=== PATIENT | male | born 1950 | race Caucasian/White ===

== ENCOUNTER 2018-12-22 10:00 | Emergency (ER) | payer MEDICARE ==
[~2018-12-22] VITALS: Ht 182.9 cm; Wt 129.3 kg
[~2018-12-22 10:00] MED LIST: ASPI325; ATECHL PO; ATEN25; ATEN25 PO; CYCL10 PO; DOCU100 PO; GABA300 PO; GABA400 PO; HYDACE5 PO; HYDHCL10EL; HYDR1TAB94 PO; IBUP800; LEVSOD25 PO; LISI20 PO; LISI5; LORA1; LORA1 PO; LORA2 PO; LOSA50 PO; METF500; METF500 PO; METF500C PO; MORP15ER PO; NAPR250 PO; NAPR500 PO; OMEGA3; OXYC5 PO; PRAZ1 PO; QUET25; RANI150; RANI150 PO; SIMV40 PO; SIMV5; TEMA30 PO; TRAZ100; VENL150ER PO; VENL25; VENL25 PO; VENL75 PO; Xanax0.5 MG PO; ZOLP10 PO; [UNRECOGNIZED DRUG - REMARK]; [UNRECOGNIZED DRUG - REMARK]
[2018-12-22] MEDS ORDERED: HYDR1TAB94 PO (12:00)
== END 2018-12-22 12:57 | disposition home or self-care (01) ==
LOC: ER 10:00
DX: S52.572A Other intraarticular fracture of lower end of left radius, initial encounter for closed fracture (principal); W01.198A Fall on same level from slipping, tripping and stumbling with subsequent striking against other object, initial encounter; Z79.899 Other long term (current) drug therapy; F43.10 Post-traumatic stress disorder, unspecified; I10 Essential (primary) hypertension; E11.9 Type 2 diabetes mellitus without complications; F17.210 Nicotine dependence, cigarettes, uncomplicated
CPT/HCPCS: 29125; 73110; 99283-25

== ENCOUNTER 2019-09-16 16:54 | Emergency (ER) | payer MEDICARE ==
[~2019-09-16] VITALS: Ht 182.9 cm; Wt 77.1 kg
[2019-09-16 18:08] LABS: BASOPHILS ABSOLUTE AUTO 0.03 K/mm3 (0.00-0.23); BASOPHILS PERCENT AUTO 0 % (0-2); EOSINOPHILS ABSOLUTE AUTO 0.41 K/mm3 (0.00-0.68); EOSINOPHILS PERCENT AUTO 4 % (0-6); Hematocrit 30.1 % (37.0-53.0); Hemoglobin 9.4 g/dL (13.5-17.5); IMMATURE GRAN ABSOLUTE AUTO 0.05 K/mm3 (0.00-0.10); IMMATURE GRAN PERCENT AUTO 1 % (0-1); LYMPHOCYTES ABSOLUTE AUTO 2.84 K/mm3 (0.84-5.20); LYMPHOCYTES PERCENT AUTO 29 % (21-46); MONOCYTES ABSOLUTE AUTO 0.86 K/mm3 (0.16-1.47); MONOCYTES PERCENT AUTO 9 % (4-13); Mean Corpuscular HGB 27.7 pg (26.0-34.0); Mean Corpuscular HGB Conc 31.2 g/dL (31.5-36.5); Mean Corpuscular Volume 89 fL (80-100); NEUTROPHILS ABSOLUTE AUTO 5.67 K/mm3 (1.96-9.15); NEUTROPHILS PERCENT AUTO 58 % (41-73); Platelet Count 224 K/mm3 (150-400); RDW Coefficient Variation 14.8 % (11.7-14.2); RDW Standard Deviation 47.9 fL (35.1-46.3); Red Blood Cell Count 3.39 M/mm3 (4.30-5.90); White Blood Cell Count 9.86 K/mm3 (4.00-11.30)
[2019-09-16 18:33] LABS: Alanine Aminotransfer (ALT/SGP 14 U/L (12-78); Albumin, Blood 2.9 g/dL (3.4-5.0); Albumin/Globulin Ratio 0.6 (0.8-1.8); Alk Phos 88 U/L (50-136); Anion Gap 6 mmol/L (6-16); Aspartate Aminotrans (AST/SGOT 16 U/L (12-37); Bilirubin, Total 0.2 mg/dL (0.1-1.0); Blood Urea Nitrogen 19 mg/dL (8-24); Bun/Creatinine Ratio 18.4 (12.0-20.0); CO2, Blood 26 mmol/L (21-32); Calcium, Blood 8.8 mg/dL (8.5-10.1); Chloride, Blood 105 mmol/L (98-108); Creatinine, Blood 1.03 mg/dL (0.60-1.20); Globulin, Blood 5.2 g/dL (2.2-4.0); Glomerular Filtration Rate >60 (60-); Glucose, Blood 81 mg/dL (70-99); Potassium, Blood 4.1 mmol/L (3.5-5.5); Sodium, Blood 137 mmol/L (136-145); Total Protein, Blood 8.1 g/dL (6.4-8.2)
[2019-09-16] MEDS ORDERED: HALO.5 PO (18:41)
== END 2019-09-16 19:17 | disposition home or self-care (01) ==
LOC: ER 16:54
PROVIDERS: Emergency Medicine
DX: F91.8 Other conduct disorders (principal); E11.9 Type 2 diabetes mellitus without complications; I10 Essential (primary) hypertension; F43.10 Post-traumatic stress disorder, unspecified; F17.210 Nicotine dependence, cigarettes, uncomplicated; Z88.8 Allergy status to other drugs, medicaments and biological substances; Z79.899 Other long term (current) drug therapy
CPT/HCPCS: 36415; 80053; 85025; 96372; 99285-25; J1630

== ENCOUNTER 2019-10-07 13:41 | Observation (INO) | payer OTHER, MEDICARE ==
[~2019-10-07] VITALS: Ht 182.9 cm; Wt 105.1 kg
[~2019-10-07 13:41] MED LIST changes: +HALO.5 PO
[2019-10-07 14:25] LABS: BASOPHILS ABSOLUTE AUTO 0.02 K/mm3 (0.00-0.23); BASOPHILS PERCENT AUTO 0 % (0-2); EOSINOPHILS ABSOLUTE AUTO 0.21 K/mm3 (0.00-0.68); EOSINOPHILS PERCENT AUTO 2 % (0-6); Hematocrit 23.7 % (37.0-53.0); Hemoglobin 6.9 g/dL (13.5-17.5); IMMATURE GRAN ABSOLUTE AUTO 0.09 K/mm3 (0.00-0.10); IMMATURE GRAN PERCENT AUTO 1 % (0-1); LYMPHOCYTES ABSOLUTE AUTO 1.84 K/mm3 (0.84-5.20); LYMPHOCYTES PERCENT AUTO 20 % (21-46); MONOCYTES ABSOLUTE AUTO 0.71 K/mm3 (0.16-1.47); MONOCYTES PERCENT AUTO 8 % (4-13); Mean Corpuscular HGB 27.1 pg (26.0-34.0); Mean Corpuscular HGB Conc 29.1 g/dL (31.5-36.5); Mean Corpuscular Volume 93 fL (80-100); Mean Platelet Volume 10.4 fL (9.1-12.4); NEUTROPHILS ABSOLUTE AUTO 6.38 K/mm3 (1.96-9.15); NEUTROPHILS PERCENT AUTO 69 % (41-73); Platelet Count 291 K/mm3 (150-400); RDW Coefficient Variation 15.5 % (11.7-14.2); RDW Standard Deviation 52.8 fL (35.1-46.3); Red Blood Cell Count 2.55 M/mm3 (4.30-5.90); White Blood Cell Count 9.25 K/mm3 (4.00-11.30)
[2019-10-07 14:42] LABS: Alanine Aminotransfer (ALT/SGP 11 U/L (12-78); Albumin, Blood 2.5 g/dL (3.4-5.0); Albumin/Globulin Ratio 0.5 (0.8-1.8); Alk Phos 69 U/L (50-136); Anion Gap 8 mmol/L (6-16); Aspartate Aminotrans (AST/SGOT 10 U/L (12-37); Bilirubin, Total 0.2 mg/dL (0.1-1.0); Blood Urea Nitrogen 17 mg/dL (8-24); Bun/Creatinine Ratio 16.2 (12.0-20.0); CO2, Blood 24 mmol/L (21-32); Calcium, Blood 8.6 mg/dL (8.5-10.1); Chloride, Blood 112 mmol/L (98-108); Creatinine, Blood 1.05 mg/dL (0.60-1.20); Globulin, Blood 5.4 g/dL (2.2-4.0); Glomerular Filtration Rate >60 (60-); Glucose, Blood 175 mg/dL (70-99); Potassium, Blood 3.9 mmol/L (3.5-5.5); Sodium, Blood 144 mmol/L (136-145); Total Protein, Blood 7.9 g/dL (6.4-8.2)
[2019-10-07] MEDS ORDERED: LIPITOR80 MG PO (17:21)
[2019-10-07] MEDS ORDERED: ALBU2.5V5 INH (17:21)
[2019-10-07] MEDS ORDERED: Benztropine Mesy1 MG PO (17:22)
[2019-10-07] MEDS ORDERED: BISA10S PR (17:22)
[2019-10-07] MEDS ORDERED: CLOP75 PO (17:23)
[2019-10-07] MEDS ORDERED: VENL75ER PO (17:23)
[2019-10-07] MEDS ORDERED: DIVA500ER PO (17:23)
[2019-10-07] MEDS ORDERED: Calcium Magnes1 EACH PO (17:23)
[2019-10-07] MEDS ORDERED: Haldol 5 mg Tab5 MG PO (17:24)
[2019-10-07] MEDS ORDERED: FERSU300 PO (17:24)
[2019-10-07] MEDS ORDERED: FOLI1 PO (17:24)
[2019-10-07] MEDS ORDERED: PREG150 PO (17:25)
[2019-10-07] MEDS ORDERED: LEVSOD25 PO (17:25)
[2019-10-07] MEDS ORDERED: ALBU3IS INH (17:25)
[2019-10-07] MEDS ORDERED: LIDO700A20 TOP (17:25)
[2019-10-07] MEDS ORDERED: MIRALAX17 GM PO (17:26)
[2019-10-07] MEDS ORDERED: MELA3 PO (17:26)
[2019-10-07] MEDS ORDERED: FAMO20 PO (17:26)
[2019-10-07] MEDS ORDERED: Seroquel Xr50 MG PO (17:27)
[2019-10-07] MEDS ORDERED: Florastor250 MG PO (17:27)
[2019-10-07] MEDS ORDERED: TIOT18 INH (17:27)
[2019-10-07] MEDS ORDERED: MINIPRESS2 MG PO (17:27)
[2019-10-07] MEDS ORDERED: TRAZ50 PO (17:28)
[2019-10-07] MEDS ORDERED: ARTHRICREAM85 GM TOP (17:28)
[2019-10-07] MEDS ORDERED: ALLO100 PO (17:29)
[2019-10-07] MEDS ORDERED: VITAMIN B-125000 MCG SL (17:29)
[2019-10-07 17:54] LABS: Hematocrit 25.1 % (37.0-53.0); Hemoglobin 7.5 g/dL (13.5-17.5)
--- NOTE | 2019-10-07 19:18 | NUR ---
1845 PT ADMITTED TO ROOM 306 PER CART FROM ER.
[2019-10-07] MEDS ORDERED: ASPI81CH PO (21:44)
[2019-10-07] MEDS ORDERED: CEFU500T30 PO (21:54)
[2019-10-07] MEDS ORDERED: MILK OF MA400 MG/5 M PO (21:59)
[2019-10-07] MEDS ORDERED: Senna-Docusate1 EACH PO (22:04)
[2019-10-07] MEDS ORDERED: ACET325 PO (22:05)
[2019-10-07] MEDS ORDERED: ONDA4ODT MM (22:10)
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
--- NOTE | 2019-10-08 04:40 | NUR ---
0162 PT MOVED VIA BED TO ROOM 350 FOR NURSING CONVIENCE, PT CONTINUED TO BE AGGRESSIVE WITH STAFF. THIS NURSE CALLED SPOUSE--TEDDY AT [phone] AND ADVISED HER OF PATIENT HITTING STAFF MEMBER AND THAT PATIENT WAS RELOCATED TO ROOM 350 FOR CLOSER OBSERVATION (VOICE MAIL LEFT).
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
[2019-10-08 05:20] LABS: BASOPHILS ABSOLUTE AUTO 0.02 K/mm3 (0.00-0.23); BASOPHILS PERCENT AUTO 0 % (0-2); EOSINOPHILS ABSOLUTE AUTO 0.21 K/mm3 (0.00-0.68); EOSINOPHILS PERCENT AUTO 2 % (0-6); Hematocrit 24.4 % (37.0-53.0); Hemoglobin 7.4 g/dL (13.5-17.5); IMMATURE GRAN PERCENT AUTO 1 % (0-1); LYMPHOCYTES ABSOLUTE AUTO 2.64 K/mm3 (0.84-5.20); LYMPHOCYTES PERCENT AUTO 30 % (21-46); MONOCYTES ABSOLUTE AUTO 0.85 K/mm3 (0.16-1.47); MONOCYTES PERCENT AUTO 10 % (4-13); Mean Corpuscular HGB 26.8 pg (26.0-34.0); Mean Corpuscular HGB Conc 30.3 g/dL (31.5-36.5); NEUTROPHILS ABSOLUTE AUTO 5.01 K/mm3 (1.96-9.15); NEUTROPHILS PERCENT AUTO 57 % (41-73); Platelet Count 275 K/mm3 (150-400); RDW Coefficient Variation 15.8 % (11.7-14.2); RDW Standard Deviation 51.3 fL (35.1-46.3); Red Blood Cell Count 2.76 M/mm3 (4.30-5.90); White Blood Cell Count 8.83 K/mm3 (4.00-11.30)
[2019-10-08 05:24] LABS: Mean Corpuscular Volume 88 fL (80-100)
--- NOTE | 2019-10-08 05:36 | NUR ---
TRANSFER REPORT RECEIVED FROM LISBET Montero RN. PT TRANSFERRED FROM 306 TO 350. PT IS FLAT BUT CURRENTLY COOPERATIVE WITH CARE. MEDICATED FOR PAIN WITH PRN DILAUDID DUE TO PT'S CURRENT NPO STATUS. IV PROTONIX DRIP STARTED. WILL CONTINUE TO MONITOR AND TREAT PER EMAR.
[2019-10-08 05:59] LABS: Anion Gap 6 mmol/L (6-16); Blood Urea Nitrogen 13 mg/dL (8-24); Bun/Creatinine Ratio 12.9 (12.0-20.0); CO2, Blood 24 mmol/L (21-32); Calcium, Blood 8.4 mg/dL (8.5-10.1); Chloride, Blood 114 mmol/L (98-108); Creatinine, Blood 1.01 mg/dL (0.60-1.20); Glomerular Filtration Rate >60 (60-); Glucose, Blood 99 mg/dL (70-99); Potassium, Blood 3.4 mmol/L (3.5-5.5); Sodium, Blood 144 mmol/L (136-145)
--- NOTE | 2019-10-08 09:08 | NUR ---
BLOOD IN REVIEW OF THE CHART THIS AM, PT WAS TO HAVE 2 UNITS PRBC'S, ONLY ONE GIVEN IN THE ER, UNABLE TO LOCATE BLOOD READY SLIP OR CONSENT FORM, NOTIFIED MANAGED CARE LIAISON WHO CALLED ER TO FIND IT, DR TAPIA NOTIFIED, WILL CALL BLOOD BANK TO SEE IF THEY CAN ISSUE ANOTHER UNIT READY SLIP AND OBTAIN ANOTHER BLOOD CONSENT
--- NOTE | 2019-10-08 10:34 | NUR ---
BLOOD TRANSFUSING, SPOKE WITH PT'S SPOUSE ON THE PHONE, PT BEING TAKEN DOWN TO DAY SURG FOR PROCEDURE
--- NOTE | 2019-10-08 10:36 | NUR ---
History, Chart, Medications and Allergies reviewed before start of procedure. Patient confirms NPO status and agrees with scheduled surgery. Lungs clear T/O to Auscultation.
--- NOTE | 2019-10-08 10:59 | NUR ---
10/08/[address] HERE TO PROVIDE ANESTHESIA CARE, PLEASE SEE RECORD FOR DETAILS. History, Chart, Medications and Allergies reviewed before start of procedure. MONITOR INTACT WITH CONTINUOUS PULSE OXIMETRY AND INTERMITTENT BP. O2 VIA N/C INTACT THROUGHOUT SEDATION/PROCEDURE AND POM MASK.
--- NOTE | 2019-10-08 17:47 | NUR ---
SUMMARY PT RESTING IN BED QUIETLY WATCHING TV, PT HAS BEEN PLEASANT AND COOPERATIVE WITH CARE, SPEECH IS SOMETIMES DIFFICULT TO UNDERSTAND, PT MED PER EMAR FOR PAIN, PT HAS HAD AN UPPER ENDOSCOPY AND A BLOOD LOSS NUCLEAR STUDY, AND AN ABD ULTRASOUND TODAY, SPOUSE HAS BEEN IN TO VISIT, PT RECIEVED 2ND UNIT OF PRBC'S TODAY, MELLISA WELL, VSS, NO ACUTE CHANGES, WILL CONT TO MONITOR
[2019-10-09 04:46] LABS: BASOPHILS ABSOLUTE AUTO 0.03 K/mm3 (0.00-0.23); BASOPHILS PERCENT AUTO 0 % (0-2); EOSINOPHILS ABSOLUTE AUTO 0.37 K/mm3 (0.00-0.68); EOSINOPHILS PERCENT AUTO 5 % (0-6); Hematocrit 28.7 % (37.0-53.0); Hemoglobin 8.7 g/dL (13.5-17.5); IMMATURE GRAN ABSOLUTE AUTO 0.09 K/mm3 (0.00-0.10); IMMATURE GRAN PERCENT AUTO 1 % (0-1); LYMPHOCYTES ABSOLUTE AUTO 1.87 K/mm3 (0.84-5.20); LYMPHOCYTES PERCENT AUTO 26 % (21-46); MONOCYTES ABSOLUTE AUTO 0.68 K/mm3 (0.16-1.47); MONOCYTES PERCENT AUTO 10 % (4-13); Mean Corpuscular HGB 26.5 pg (26.0-34.0); Mean Corpuscular HGB Conc 30.3 g/dL (31.5-36.5); Mean Corpuscular Volume 88 fL (80-100); Mean Platelet Volume 9.6 fL (9.1-12.4); NEUTROPHILS PERCENT AUTO 57 % (41-73); Platelet Count 255 K/mm3 (150-400); RDW Coefficient Variation 15.9 % (11.7-14.2); RDW Standard Deviation 50.4 fL (35.1-46.3); Red Blood Cell Count 3.28 M/mm3 (4.30-5.90); White Blood Cell Count 7.14 K/mm3 (4.00-11.30)
[2019-10-09 05:06] LABS: Anion Gap 6 mmol/L (6-16); Blood Urea Nitrogen 11 mg/dL (8-24); Bun/Creatinine Ratio 11.5 (12.0-20.0); CO2, Blood 25 mmol/L (21-32); Calcium, Blood 8.3 mg/dL (8.5-10.1); Chloride, Blood 111 mmol/L (98-108); Creatinine, Blood 0.96 mg/dL (0.60-1.20); Glomerular Filtration Rate >60 (60-); Glucose, Blood 93 mg/dL (70-99); Potassium, Blood 3.7 mmol/L (3.5-5.5); Sodium, Blood 142 mmol/L (136-145)
--- NOTE | 2019-10-09 06:08 | NUR ---
SHIFT SUMMARY PT IS A 69 Y/O MALE, ADMITTED FOR A POSSIBLE UPPER GI BLEED. HE IS A&O X 2, AND CURRENTLY ON BEDREST. PT IS INCONTINENT, THOUGH HE MOVES HIMSELF IN BED. HE WAS MEDICATED X2 FOR PAIN WITH PRN NORCO. NO COMPLAINTS OF NAUSEA OR SOB. VITAL SIGNS STABLE, THOUGH BP WAS SLIGHTLY ELEVATED AT PM VITALS AT 161/90. NO OTHER ACUTE CHANGES IN PT CONDITION NOTED. WILL CONTINUE TO MONITOR AND TREAT PER EMAR UNTIL HAND OFF TO DAY SHIFT RN.
--- NOTE | 2019-10-09 18:09 | NUR ---
SUMMARY PT RESTLESS IN BED, WATCHING TV, SPEECH IS SOMETIMES DIFFICULT TO UNDERSTAND, PT WITH RAMBLING CONVERSATIONS AND CONFUSED AT TIMES, L SIDE REMAINS FLACCID, PLAN TO SEND PT BACK TO [facility] TOMORROW, SPOUSE WAS IN TO VISIT, VSS, NO ACUTE CHANGES, WILL CONT TO MONITOR
--- NOTE | 2019-10-10 04:39 | NUR ---
SHIFT SUMMARY- PT. A&O X2, COOPERATIVE WITH CARE. SCHEDULED MEDS GIVEN WITH APPLESAUCE, PT. TOLERATED WELL. ASLEEP T/O THE SHIFT. NO APPARENT DISTRESS NOTED. PT. IS INCONTINENT, ATTENDS IN PLACE. NO C/O PAIN OR DISCOMFORT T/O THE NIGHT. VSS. AWAITING D/C TO [facility] TODAY. CALL LIGHT WITHIN REACH, SIDE RAILS UP X2, AND BED ALARM ON FOR SAFETY. WILL CONT TO MONITOR.
[2019-10-10] MEDS ORDERED: SUCR1 PO (16:17)
--- NOTE | 2019-10-10 18:09 | NUR ---
PATIENT DISCHARGE: PATIENT DISCHARGED/ XFR TO [facility] () THIS SHIFT. MEDICATION RECONCILIATION COMPLETED; MED LIST FAXED TO . PATIENT DEPARTED MEDICAL FLOOR VIA [facility] WITH WHEELCHAIR AT 1740. REPORT CALLED TO SNEHAL FREEMAN, AT .
== END 2019-10-10 17:39 ==
LOC: ER 13:41 → MEDS 13:42 → ENPENDDIS 10-10 15:45 → MEDS 10-10 17:39
PROVIDERS: Emergency Medicine; ADMIT Internal Medicine
PROC: 0W3P8ZZ Control Bleeding in Gastrointestinal Tract, Via Natural or Artificial Opening Endoscopic (ICD-10-PCS; principal; 2019-10-09)
DX: K55.21 Angiodysplasia of colon with hemorrhage (principal); D50.0 Iron deficiency anemia secondary to blood loss (chronic); I10 Essential (primary) hypertension; J44.9 Chronic obstructive pulmonary disease, unspecified; K21.9 Gastro-esophageal reflux disease without esophagitis; E11.9 Type 2 diabetes mellitus without complications; E66.9 Obesity, unspecified; G47.33 Obstructive sleep apnea (adult) (pediatric); F43.10 Post-traumatic stress disorder, unspecified; F10.21 Alcohol dependence, in remission; E03.9 Hypothyroidism, unspecified; Z87.891 Personal history of nicotine dependence; Z88.8 Allergy status to other drugs, medicaments and biological substances; Z98.890 Other specified postprocedural states; Z79.02 Long term (current) use of antithrombotics/antiplatelets
CPT/HCPCS: 36415; 71046; 76705; 78278; 80048; 80053; 82272; 82947; 83605; 84145; 85014; 85018; 85025; 86850; 86900; 86901; 86923; 93005; 93010; 94660; 94762; 97112; 97162; 97166; 97530; 99285-25; A9270-GY; A9560; C9113; J1170; J2001; J2250; J2704; J3480; J7030; J7120; P9016

== ENCOUNTER 2019-11-02 00:49 | Emergency (ER) | payer OTHER, MEDICARE ==
[~2019-11-02] VITALS: Ht 185.4 cm; Wt 102.5 kg
[~2019-11-02 00:49] MED LIST changes: +ACET325 PO; +ALBU2.5V5 INH; +ALBU3IS INH; +ALLO100 PO; +ARTHRICREAM85 GM TOP; +ASPI81CH PO; +BISA10S PR; +Benztropine Mesy1 MG PO; +CEFU500T30 PO; +CLOP75 PO; +Calcium Magnes1 EACH PO; +DIVA500ER PO; +FAMO20 PO; +FERSU300 PO; +FOLI1 PO; +Florastor250 MG PO; +Haldol 5 mg Tab5 MG PO; +LIDO700A20 TOP; +LIPITOR80 MG PO; +MELA3 PO; +MILK OF MA400 MG/5 M PO; +MINIPRESS2 MG PO; +MIRALAX17 GM PO; +ONDA4ODT MM; +PREG150 PO; +SUCR1 PO; +Senna-Docusate1 EACH PO; +Seroquel Xr50 MG PO; +TIOT18 INH; +TRAZ50 PO; +VENL75ER PO; +VITAMIN B-125000 MCG SL
[2019-11-02 01:19] LABS: BASOPHILS ABSOLUTE AUTO 0.03 K/mm3 (0.00-0.23); BASOPHILS PERCENT AUTO 0 % (0-2); EOSINOPHILS ABSOLUTE AUTO 0.04 K/mm3 (0.00-0.68); EOSINOPHILS PERCENT AUTO 0 % (0-6); Hematocrit 25.7 % (37.0-53.0); IMMATURE GRAN ABSOLUTE AUTO 0.07 K/mm3 (0.00-0.10); IMMATURE GRAN PERCENT AUTO 1 % (0-1); LYMPHOCYTES ABSOLUTE AUTO 2.24 K/mm3 (0.84-5.20); LYMPHOCYTES PERCENT AUTO 16 % (21-46); MONOCYTES ABSOLUTE AUTO 0.97 K/mm3 (0.16-1.47); MONOCYTES PERCENT AUTO 7 % (4-13); Mean Corpuscular HGB 25.7 pg (26.0-34.0); Mean Corpuscular HGB Conc 31.1 g/dL (31.5-36.5); Mean Corpuscular Volume 83 fL (80-100); NEUTROPHILS ABSOLUTE AUTO 10.38 K/mm3 (1.96-9.15); NEUTROPHILS PERCENT AUTO 76 % (41-73); Platelet Count 215 K/mm3 (150-400); RDW Coefficient Variation 15.1 % (11.7-14.2); Red Blood Cell Count 3.11 M/mm3 (4.30-5.90); White Blood Cell Count 13.73 K/mm3 (4.00-11.30)
[2019-11-02 01:35] LABS: Alanine Aminotransfer (ALT/SGP 9 U/L (12-78); Albumin, Blood 2.1 g/dL (3.4-5.0); Albumin/Globulin Ratio 0.4 (0.8-1.8); Alk Phos 58 U/L (50-136); Anion Gap 8 mmol/L (6-16); Aspartate Aminotrans (AST/SGOT 11 U/L (12-37); Bilirubin, Total 0.2 mg/dL (0.1-1.0); Blood Urea Nitrogen 16 mg/dL (8-24); CO2, Blood 24 mmol/L (21-32); Calcium, Blood 8.3 mg/dL (8.5-10.1); Chloride, Blood 108 mmol/L (98-108); Creatinine, Blood 0.94 mg/dL (0.60-1.20); Globulin, Blood 5.1 g/dL (2.2-4.0); Glomerular Filtration Rate >60 (60-); Glucose, Blood 109 mg/dL (70-99); Potassium, Blood 4.1 mmol/L (3.5-5.5); Sodium, Blood 140 mmol/L (136-145); Total Protein, Blood 7.2 g/dL (6.4-8.2); Troponin I <0.015 ng/mL (0.000-0.040)
[2019-11-02] MEDS ORDERED: DIVA125 PO (02:08)
[2019-11-02] MEDS ORDERED: OXYC5 PO (02:12)
[2019-11-02] MEDS ORDERED: Carafate1 GM/10 ML PO (02:14)
[2019-11-02 03:19] LABS: pH Blood Arterial 7.47 (7.35-7.45)
[2019-11-16] MEDS ORDERED: TIOT18 INH (09:53)
[2019-11-16] MEDS ORDERED: IRON150C PO (09:53)
[2019-11-16] MEDS ORDERED: GUAI600T33 PO (09:54)
[2019-11-16] MEDS ORDERED: BENZ2 PO (09:55)
[2019-11-16] MEDS ORDERED: Augmentin 875-1 EACH PO (13:03)
== END 2019-11-02 05:56 | disposition home or self-care (01) ==
LOC: ER 00:49
PROVIDERS: Emergency Medicine
DX: R06.02 Shortness of breath (principal); I10 Essential (primary) hypertension; E11.9 Type 2 diabetes mellitus without complications; N17.9 Acute kidney failure, unspecified; Z86.19 Personal history of other infectious and parasitic diseases; Z87.891 Personal history of nicotine dependence; Z88.8 Allergy status to other drugs, medicaments and biological substances; Z79.899 Other long term (current) drug therapy
CPT/HCPCS: 36600; 71045; 80053; 82803; 84484; 85025; 93005; 93010; 96360; 96361; 99285-25; J7030

== ENCOUNTER 2020-07-16 20:40 | Inpatient (IN) | payer OTHER, MEDICARE ==
[~2020-07-16] VITALS: Ht 182.9 cm; Wt 94.6 kg
[~2020-07-16 20:40] MED LIST changes: +ALBU2.5V5 NEB; +ATOR20 PT; +Aspirin EC81 MG PO; +Augmentin 875-1 EACH PO; +BENZ2 PO; +CHILDREN'S160 MG/14 PT; +CYCLOBENZAPRINE5 MG PO; +Carafate1 GM/10 ML PO; +DIVA125 PO; +DOCU100 PT; +GUAI600T33 PO; -Haldol 5 mg Tab5 MG PO; +IRON150C PO; +SANTYL30 G1 TOP; +STIOLTO RESPIMAT4 GM INH; +STRIVERDI RESPIM4 G1 INH
[2020-07-16 21:21] LABS: PCO2 Arterial 30.6 mmHg (35-45); PO2 Arterial 74.2 mmHg (80-100)
[2020-07-16 21:30] LABS: BASOPHILS ABSOLUTE AUTO 0.01 K/mm3 (0.00-0.23); BASOPHILS PERCENT AUTO 0 % (0-2); EOSINOPHILS ABSOLUTE AUTO 0.28 K/mm3 (0.00-0.68); EOSINOPHILS PERCENT AUTO 2 % (0-6); IMMATURE GRAN ABSOLUTE AUTO 0.36 K/mm3 (0.00-0.10); IMMATURE GRAN PERCENT AUTO 3 % (0-1); LYMPHOCYTES ABSOLUTE AUTO 2.15 K/mm3 (0.84-5.20); LYMPHOCYTES PERCENT AUTO 17 % (21-46); MONOCYTES ABSOLUTE AUTO 0.78 K/mm3 (0.16-1.47); MONOCYTES PERCENT AUTO 6 % (4-13); Mean Corpuscular HGB 24.3 pg (26.0-34.0); Mean Corpuscular HGB Conc 28.9 g/dL (31.5-36.5); Mean Corpuscular Volume 84 fL (80-100); Mean Platelet Volume 10.6 fL (9.1-12.4); NEUTROPHILS ABSOLUTE AUTO 9.03 K/mm3 (1.96-9.15); NEUTROPHILS PERCENT AUTO 72 % (41-73); Platelet Count 341 K/mm3 (150-400); RDW Coefficient Variation 18.7 % (11.7-14.2); RDW Standard Deviation 56.9 fL (35.1-46.3); Red Blood Cell Count 1.44 M/mm3 (4.30-5.90); White Blood Cell Count 12.61 K/mm3 (4.00-11.30)
[2020-07-16 21:34] LABS: Hematocrit 12.1 % (37.0-53.0); Hemoglobin 3.5 g/dL (13.5-17.5)
[2020-07-16 21:41] LABS: Alanine Aminotransfer (ALT/SGP 12 U/L (12-78); Albumin, Blood 1.8 g/dL (3.4-5.0); Albumin/Globulin Ratio 0.3 (0.8-1.8); Alk Phos 54 U/L (50-136); Anion Gap 12 mmol/L (6-16); Aspartate Aminotrans (AST/SGOT 8 U/L (12-37); Bilirubin, Total 0.2 mg/dL (0.1-1.0); Blood Urea Nitrogen 120 mg/dL (8-24); Bun/Creatinine Ratio 23.8 (12.0-20.0); CO2, Blood 20 mmol/L (21-32); Calcium, Blood 8.3 mg/dL (8.5-10.1); Chloride, Blood 105 mmol/L (98-108); Creatinine, Blood 5.05 mg/dL (0.60-1.20); Globulin, Blood 6.2 g/dL (2.2-4.0); Glomerular Filtration Rate 12 (60-); Glucose, Blood 105 mg/dL (70-99); Potassium, Blood 5.8 mmol/L (3.5-5.5); Sodium, Blood 137 mmol/L (136-145); Troponin I <0.015 ng/mL (0.000-0.040)
[2020-07-16] MEDS ORDERED: ASCO500 PO (23:13)
[2020-07-16 23:34] LABS: Valproic Acid 21.9 ug/mL (50.0-100.0)
[2020-07-16 23:45] LABS: Percent Saturation 8.3 % (20.0-50.0)
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
--- NOTE | 2020-07-17 03:00 | NUR ---
24 hour urine ayala drainage bag emptied and placed on ice, 24 hour urine collection started
[2020-07-17 03:03] LABS: Source, Urine Clean Catch
[2020-07-17 03:06] LABS: Bilirubin, Urine Neg (Neg); Blood, Urine 5+ (Neg); Glucose Qualitative, Urine Neg (Neg); Ketones, Urine Neg (Neg); Leukocyte Esterase, Urine 3+ (Neg); Nitrite, Urine Pos (Neg); Protein, Urine 3+ (Neg); Urobilinogen, Urine NORM (Normal)
[2020-07-17 03:15] LABS: Appearance, Urine Cloudy (Clear); Color, Urine Yellow (P-Yellow)
[2020-07-17 03:16] LABS: Bacteria Many /hpf; Red Blood Cells, Urine 50-100 /hpf (0-2); Squamous Epithelial Cells Not Seen /hpf (Few); White Blood Cells, Urine TNTC /hpf (0-5)
[2020-07-17 03:17] LABS: Amorphous Mod (0-Heavy)
[2020-07-17 03:53] LABS: Adenovirus Not Detected (NOT DETECT); Bordetella pertussis Not Detected (NOT DETECT); Chlamydophila pneumoniae Not Detected (NOT DETECT); Coronavirus 229E Not Detected (NOT DETECT); Coronavirus HKU1 Not Detected (NOT DETECT); Coronavirus NL63 Not Detected (NOT DETECT); Coronavirus OC43 Not Detected (NOT DETECT); Human Metapneumovirus Not Detected (NOT DETECT); Human Rhinovirus/Enterovirus Not Detected (NOT DETECT); Influenza A/2009-H1 Not Detected (NOT DETECT); Influenza A/H1 Not Detected (NOT DETECT); Influenza A/H3 Not Detected (NOT DETECT); Influenza B Not Detected (NOT DETECT); Mycoplasma pneumoniae Not Detected (NOT DETECT); Parainfluenza Virus 1 Not Detected (NOT DETECT); Parainfluenza Virus 2 Not Detected (NOT DETECT); Parainfluenza Virus 3 Not Detected (NOT DETECT); Parainfluenza Virus 4 Not Detected (NOT DETECT); Respiratory Syncytial Virus Not Detected (NOT DETECT); SARS-Cov-2 (COVID-19), BioFire Not Detected (NOT DETECT)
--- NOTE | 2020-07-17 06:37 | NUR ---
PT NEW ADMIT THIS SHIFT FROM ER FOR DIAGNOSIS OF ANEMIA. DENIES PAIN OTHER THAN THE BACKS OF HIS KNEES AND STATES THAT IT IS AN ITCHING TYPE PAIN DOES NOT PROVIDE PAIN SCALE, SPOUSE REPORTS THAT PT HAS RESTLESS LEGS. HE CONTINUES ORIENTED TO SELF AND SURROUNDINGS, INTERMITTENTLY BELIEVES THAT HE IS AT THE [facility] HOWEVER CONTINUES TO BE ABLE TO STATE THAT HE [facility]. SPEECH QUALITY HAS IMPROVED OVER THIS SHIFT. LUNGS WERE COARSE THROUGHOUT ON ARRIVAL TO ICU, SATS ARE MAINTAINED WITH OXYGEN VIA NASAL CANNULA AT 2 L/MIN, LUNG SOUNDS OF THIS AM HAVE EXPIRATORY WHEEZES THROUGHOUT, PT DOES ADMIT TO INCREASED SHORTNESS OF BREATH OVER THE LAST DAY. SINUS TACH, PRESSURES IMPROVED, NO EDEMA IS NOTED, SKIN COLOR SOMEWHAT IMPROVED FROM ARRIVAL TO UNIT AFTER 1ST UNIT PRBCS TRANSFUSED, SECOND TRANSFUSION IN PROGRESS AT THIS TIME. ABD MODERATELY DISTENDED, SOFT, HYPOACTIVE BOWEL TONES, NONTENDER TO PALP, RESIDUAL OF 150 ML THIS AM, BROWN IN COLOR. AGARWAL CATH DRAINING CLOUDY LYDIA URINE TO GRAVITY, 24 HOUR URINE IN PROGRESS, STARTED AT 0300 THIS AM. IV ACCESS TO RIGHT EXTERNAL JUGULAR, AND RIGHT FOREARM, BICARB GTT TO EJ AND TRANSFUSION TO RIGHT FOREARM, ATTEMPTS MADE FOR 3RD IV WITHOUT SUCCESS, SPOKE WITH DR GAUTHIER REGARDING IV ACCESS AND DELAY IN ADMINISTRATION OF PROTONIX GTT SHE HAD STATED BLOOD TRANSFUSION WAS A PRIORITY.
--- NOTE | 2020-07-17 07:26 | NUR ---
Received report from Christy BRIAN. Patient laying supine in bed with HOB at 20 degrees. He is awake and alert, speech garbled and difficult to understand at times. Repositioned patient. He is 2L O2 via NC and sats >90%. He constantly moves right leg up and down. He has existing foot ulcer on left foot. He has 14Fr ayala draining to gravity and has 24 hr urine test until 03007/18/20 and has about 350 ml's in bag currently. He has Peg tube to LUQ that has brown substance in tube. He has 20ga IV LLFA infusing D5 with bicarb at 150ml/hr. He also has REJ 20ga IV infusing 2nd Unit PRBC at 125ml/hr. He has bilateral SCD's in place.
--- NOTE | 2020-07-17 10:39 | NUR ---
Patient continues to rest in bed. 2nd PRBC done, started protonix gtt. Patient continues to communicate well with breif questions. No other new changes. He continues to move left leg in bed frequently. VSS, See EMR.
--- NOTE | 2020-07-17 11:41 | NUR ---
Patient continues to rest. He has D5 with Bicarb at 150ml/hr, Protonix gtt at 10ml/hr, and NS TKO. He is still arouseable with verbal stimuli. VSS. CBC i ordered post PRBC. No signs of GI bleed. 24 hour urne continues.
[2020-07-17 12:35] LABS: BASOPHILS ABSOLUTE AUTO 0.01 K/mm3 (0.00-0.23); BASOPHILS PERCENT AUTO 0 % (0-2); EOSINOPHILS ABSOLUTE AUTO 0.05 K/mm3 (0.00-0.68); EOSINOPHILS PERCENT AUTO 0 % (0-6); IMMATURE GRAN ABSOLUTE AUTO 0.29 K/mm3 (0.00-0.10); IMMATURE GRAN PERCENT AUTO 2 % (0-1); LYMPHOCYTES ABSOLUTE AUTO 1.76 K/mm3 (0.84-5.20); LYMPHOCYTES PERCENT AUTO 15 % (21-46); MONOCYTES ABSOLUTE AUTO 1.04 K/mm3 (0.16-1.47); MONOCYTES PERCENT AUTO 9 % (4-13); Mean Corpuscular HGB 27.4 pg (26.0-34.0); Mean Corpuscular HGB Conc 32.2 g/dL (31.5-36.5); Mean Corpuscular Volume 85 fL (80-100); Mean Platelet Volume 9.9 fL (9.1-12.4); NEUTROPHILS ABSOLUTE AUTO 8.94 K/mm3 (1.96-9.15); NEUTROPHILS PERCENT AUTO 74 % (41-73); Platelet Count 271 K/mm3 (150-400); RDW Coefficient Variation 16.2 % (11.7-14.2); RDW Standard Deviation 49.8 fL (35.1-46.3); Red Blood Cell Count 1.79 M/mm3 (4.30-5.90); White Blood Cell Count 12.09 K/mm3 (4.00-11.30)
[2020-07-17 12:38] LABS: Hematocrit 15.2 % (37.0-53.0); Hemoglobin 4.9 g/dL (13.5-17.5)
[2020-07-17 13:11] LABS: Albumin, Blood 1.7 g/dL (3.4-5.0); Albumin/Globulin Ratio 0.3 (0.8-1.8); Bilirubin, Direct 0.1 mg/dL (0.0-0.3); Bilirubin, Indirect 0.3 mg/dL (0.1-0.7); Bilirubin, Total 0.4 mg/dL (0.1-1.0); Bun/Creatinine Ratio 26.3 (12.0-20.0); Calcium, Blood 7.6 mg/dL (8.5-10.1); Creatinine, Blood 4.87 mg/dL (0.60-1.20); Magnesium, Blood 2.6 mg/dL (1.6-2.4); Phosphorus, Blood 7.5 mg/dL (2.5-4.9); Potassium, Blood 5.5 mmol/L (3.5-5.5); Total Protein, Blood 6.7 g/dL (6.4-8.2); Uric Acid, Blood 7.9 mg/dL (3.5-7.2)
--- NOTE | 2020-07-17 13:48 | NUR ---
Critical Hgb came back and was 4.[address] Morton and he ordered 2 more PRBC. Just starting 3rd one and patient tolerating well. He awakens to verbal stimuli and is able top communicate his needs. VSS, See EMR. Held Protonix gtt r/t to access. Will Try PowerGlide for better access. Repositioned.
--- NOTE | 2020-07-17 15:29 | NUR ---
Gave patient bath and changed linen. Placed 18ga 8cm PowerGlide ELOISA and restarted Protonix gtt. Patient continues ot respond to verbal stimuli and is resting otherwise. No significant changes with patiient.
--- NOTE | 2020-07-17 17:34 | NUR ---
No significant changes today. He had med black/green stool that was sent for guiac. He has 4th unit PRBC infusing. Protonix gtt at 10ml/hr, D5 with bicarb at 50ml/hr, NS TKO. !* ga 8cm PowerGlide in ELOISA infusing blood, RIJ infusing D5 with bicarb and NS TKO, R lower FA 20ga infusing Protonix. went home. VSS, See EMR. He continues with wet productive caough and did deep suction and retreived quite abit and thenm breathing treatment for audible wheezing and doing better now and cleared audible wheezes.
--- NOTE | 2020-07-17 17:52 | NUR ---
Per admit trigger, I attempted to meet with Mr. Sarkar. He was non-lucid and mumbled incoherantly. He appears quite weak anad unable to engage in conversation at this time. Prayer provided at bedside. I will remain available.
[2020-07-17 19:56] LABS: Hematocrit 18.3 % (37.0-53.0)
[2020-07-17 19:58] LABS: Hemoglobin 5.9 g/dL (13.5-17.5)
--- NOTE | 2020-07-17 21:00 | NUR ---
ASSUMPTION OF CARE PT RESTING IN BED, AROUSES TO VERBAL STIMULI, ANSWERS YES/NO QUESTIONS APPROPRIATELY, FOLLOWS SOME COMMANDS, MOVES R SIDE INDEPENDENTLY, NO MOVEMENT TO L SIDE. PT ON 2L PER NC, O2 SATURATIONS >90%. MONITOR SHOWS SINUS RHYTHM WITH HR 80'S, BP STABLE. PT WITH EDEMA T/O, APPEARS TO BE WORSE TO L SIDE, NON PITTING. FOAM MEPILEX TO L HEEL WITH PINK FOAM PROTECTORS PRESENT D/T ULCER PRESENT UPON ADMISSION, SEE PHOTO IN CHART. BOWEL TONES HYPOACTIVE, PEG TO LUQ, CLAMPED AT THIS TIME, EXTENSIVE ORAL CARE PROVIDED, LARGE CAST REMOVED FROM PALATE. AGARWAL IN PLACE, COLLECTION BAG OVER ICE FOR 24 hr COLLECTION TO END AT 0300 ON 07/18/20, URINE IS RED TINGED. STAT POST TRANSFUSION H&H ORDERED, HGB CRITICALLY LOW @ 5.9, ORDERS TO TRANSFUSE 2 ADDITIONAL UNITS PRBC. PTS 5TH UNIT OF PRBC INFUSING NOW.
[2020-07-17 21:51] LABS: Stool Occult Blood Guaiac 1 Pos (Neg)
[2020-07-17 22:00] LABS: PCO2 Arterial 34.5 mmHg (35-45); PO2 Arterial 65.8 mmHg (80-100); pH Blood Arterial 7.35 (7.35-7.45)
--- NOTE | 2020-07-17 22:30 | NUR ---
02 DESATURATIONS 2129: PT WITH INCREASED RESTLESSNESS IN BED, TO PTS ROOM AND PT HAD PULLED AGARWAL STAT LOCK FROM LEG, AGARWAL REMAINS IN PLACE. INCREASED RESPIRATORY RATE AND RHONCHI AUDIBLE WITHOUT STETHOSCOPE, ORAL SUCTION W/ LITTLE SECRETIONS, DECREASED AIRFLOW NOTED WITH AUSCULTATION. PT REPORTS SOB, O2 SATURATIONS DECREASING TO MID 80'S, PT AFEBRILE. BLOOD TRANSFUSION ON SB AT THIS TIME. PT AFEBRILE. @ APPROX 2144, GEO ZHENG IT RISK AND ASSURANCE SENIOR MANAGER TO ROOM, ORDER FOR NT SUCTION, XRAY AND ABG. PT PLACED HIGH FOWLERS, NT SUCTION, PT TOLERATED WELL, COPIOUS AMOUNTS OF THICK YELLOW TO WHITE SECRETIONS WITH ON LARGE, BLOODY MUCOUS PLUG. PT REPORTS DECREASED SOB AFTER SUCTIONING. ABG AND XRAY COMPLETE. PER GEO ZHENG OKAY TO RESTART BLOOD TRANSFUSION, COMPLETE THIS UNIT AND THEN RECHECK H&H PRIOR TO ADMINISTERING PTS 6TH UNIT.
[2020-07-18 00:58] LABS: Hematocrit 20.6 % (37.0-53.0)
[2020-07-18 03:31] LABS: Protein, Urine Quantitative 134.2 mg/dL (0.0-11.9)
[2020-07-18 03:31] LABS: Hematocrit 19.1 % (37.0-53.0); Hemoglobin 6.4 g/dL (13.5-17.5)
[2020-07-18 03:47] LABS: Albumin, Blood 1.6 g/dL (3.4-5.0); Anion Gap 10 mmol/L (6-16); Blood Urea Nitrogen 135 mg/dL (8-24); Bun/Creatinine Ratio 28.4 (12.0-20.0); CO2, Blood 23 mmol/L (21-32); Calcium, Blood 7.3 mg/dL (8.5-10.1); Chloride, Blood 113 mmol/L (98-108); Creatinine, Blood 4.76 mg/dL (0.60-1.20); Glomerular Filtration Rate 13 (60-); Glucose, Blood 96 mg/dL (70-99); Magnesium, Blood 2.4 mg/dL (1.6-2.4); Phosphorus, Blood 7.2 mg/dL (2.5-4.9); Potassium, Blood 4.4 mmol/L (3.5-5.5); Sodium, Blood 146 mmol/L (136-145)
--- NOTE | 2020-07-18 07:16 | NUR ---
SHIFT SUMMARY PT WITH PERIODS OF RESPIRATORY DISTRESS THIS SHIFT REQUIRING INCREASED FREQUENCY OF NT SUCTION, COPIOUS AMOUNTS OF THICK YELLOW TO WHITE SECRETIONS, OCCASSIONALLY BLOOD STREAKED. PT REMAINS ON 2L PER NC FOR MOST OF SHIFT, INCREASING TO 6L PER NC DURING PERIODS OF DISTRESS UNTIL RECOVERY THEN TITRATED BACK TO 2L. 2 ADDITIONAL UNITS OF PRBC ORDERED THIS SHIFT, 6TH UNIT OF PRBC CURRENTLY INFUSING. 24 HOUR URINE COLLECTION COMPLETE AND SENT TO LAB, 40MG IV LASIX ADMINISTERED ONCE COLLECTION WAS COMPLETE. DR STRICKLAND IN TO SEE PT THIS AM, ORDER TO DC SODIUM BICARB GTT AND START D5 1/2 NS @ 50ml/hr.
[2020-07-18 09:22] LABS: Hematocrit 20.8 % (37.0-53.0)
--- NOTE | 2020-07-18 10:17 | NUR ---
PT RESTING IN BED. WILL RESPOND TO VERBAL BUT IS DROWSY. ORIENTED TO SELF AND WAS ABLE TO STATE YEAR 2019, DOES NOT ANSWER ANY OTHER ORIENTATION QUESTIONS. PT IS WEAK T/O. 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 H&H RESULTS CALLED TO DR. HERMOSILLO, NEW ORDERS FOR REPEAT H&H IN 6 HRS. PT SKIN IS PINK AND WARM. NO SIGNS OF BLEEDING NOTED. NO SIGN OF DISTRESS AT THE MOMENT.
--- NOTE | 2020-07-18 14:22 | NUR ---
07/18/20 1422 MANDY BROWN History, Chart, Medications and Allergies reviewed before start of procedure. 3-LEAD EKG REVIEWED WITH PHYSICIAN PRIOR TO START OF PROCEDURE. MONITOR INTACT WITH CONTINUOUS PULSE OXIMETRY AND INTERMITTENT BP. O2 VIA N/C INTACT THROUGHOUT SEDATION/PROCEDURE. MAC WITH DR. LOCO.
--- NOTE | 2020-07-18 14:48 | NUR ---
EGD COMPLETED BY DR. FREY. PT IS NOW AWAKE AND AT BEDSIDE. SPOKE WITH DR. FREY AND WAS UPDATED.
--- NOTE | 2020-07-18 14:49 | NUR ---
LATE ENTRY 1348 PT IN ICU FOR PREOP. History, Chart, Medications and Allergies reviewed before start of procedure. Lungs clear T/O to Auscultation. Patient confirms NPO status and agrees with scheduled surgery. Pre-Op teaching done. Pt verbalizes understanding.
[2020-07-18 15:41] LABS: Hematocrit 21.4 % (37.0-53.0); Hemoglobin 7.2 g/dL (13.5-17.5)
--- NOTE | 2020-07-18 17:55 | NUR ---
SUMMARY PT RESTING IN BED. MORE AWAKE THIS AFTERNOON. SPEECH IS STILL GARBLED AND DIFFICULT TO UNDERSTAND. CAN UNDERSTAND "WATER". DOING FREQUENT MOUTH CARE DUE TO PT COUGHING UP THICK SECRETIONS AND THEY DRY IN MOUTH. COUGH IS STRONGER THIS AFTERNOON AND ABLE TO CLEAR AIRWAY. HAD TO NT SUCTION EARLIER IN THE SHIFT. STILL GETTING COPIOUS AMT OF THICK ABRAHAM SPUTUM. HAD EGD TODAY. REPEAT H&H CALLED TO DR. HERMOSILLO THAT SAID IF NO SIGN OF BLEEDING WITH HGB GREATER THAN 7 OK TO NOT TRANSFUSE. NO SIGNS OF BLEEDING TODAY. CLEANSED AND CHANGED DRESSING TO HEEL PER , SHE STATE HE HAS IT CHANGED AT HOME EVER MON, WED, AND FRI. NO SIGN OF DISTRESS NOW.
--- NOTE | 2020-07-18 21:00 | NUR ---
ASSUMPTION OF CARE PT ALERT IN BED, WATCHING TELEVISION, ORIENTED TO SELF AND FOLLOWING DIRECTIONS, MUCH MORE TALKATIVE AND SOCIAL THAN PREVIOUS NIGHT, SPEECH IS VERY GARBLED AND DIFFCULT TO UNDERSTAND BUT PT IS ABLE TO MAKE NEEDS KNOWN. FREQUENT REQUESTS FOR WATER, EXPLAINED NPO STATUS AND PROVIDED ORAL SWABS, ORAL CARE AND DEEP ORAL SUCTIONING NEEDED. PT ON 2L PER NC, O2 SATURATIONS>90%. MONITOR SHOWS SINUS RHYTHM WITH HR 80'S, BP STABLE, PT IS AFEBRILE. PEG IN PLACE, CLAMPED AT THIS TIME, SKIN SURROUNG INSERTION SITE C/D/I. THICK, PASTY BLACK STOOLS CONTINUE. AGARWAL IN PLACE DRAINING YELLOW TO PINK URINE. PT MOVES RIGHT SIDE INDEPENDENTLY, NO MOVEMENT NOTED TO L SIDE. SCD'S IN PLACE, HEEL MEPILEX AND PINK FOAM IN PLACE TO L FOOT FOR ULCER, POA.
[2020-07-19 04:23] LABS: Hematocrit 22.3 % (37.0-53.0); Hemoglobin 7.4 g/dL (13.5-17.5)
[2020-07-19 04:42] LABS: Albumin, Blood 1.7 g/dL (3.4-5.0); Anion Gap 11 mmol/L (6-16); Blood Urea Nitrogen 114 mg/dL (8-24); Bun/Creatinine Ratio 24.9 (12.0-20.0); CO2, Blood 22 mmol/L (21-32); Calcium, Blood 7.6 mg/dL (8.5-10.1); Chloride, Blood 116 mmol/L (98-108); Creatinine, Blood 4.58 mg/dL (0.60-1.20); Glomerular Filtration Rate 13 (60-); Glucose, Blood 93 mg/dL (70-99); Magnesium, Blood 2.2 mg/dL (1.6-2.4); Phosphorus, Blood 5.6 mg/dL (2.5-4.9); Potassium, Blood 3.4 mmol/L (3.5-5.5); Sodium, Blood 149 mmol/L (136-145)
[2020-07-19 05:09] LABS: HEMATOCRIT 14.6 % (37.5-51.0); HEMATOLOGY COMMENTS: Note: (.)
--- NOTE | 2020-07-19 06:17 | NUR ---
SHIFT SUMMARY NO ACUTE CHANGES THIS SHIFT, PT REMAINS AWAKE FOR MOST OF NIGHT, FREQUENT REQESTS FOR WATER, ORAL CARE AND SWABS PROVIDED. PT PLACED ON RA @ 0400, O2 SATURATIONS MAINTAINED> 90%, PT GAINING STRENGTH, COUGH IMPROVING, DEEP ORAL SUCTION x1 THIS SHIFT. MONITOR SHOWS SINUS RHYTHM WITH HR 80'S-90'S, BP STABLE. PT REMAINS AFEBRILE. MORNING LABS SHOW STABLE HGB. OVERALL PTS MENTATION IS IMPROVING, PT IS INTERACTING WITH STAFF, MAKING JOKES AND EAGER TO PARTICIPATE IN CARE. DISCUSSED PO INTAKE WITH AND POSSIBILITY THAT IT MAY NOT BE RECOMMENDED FOR HIM TO ADVANCE TO ORAL DIET, PT OKAY WITH RECEIVING FEEDS VIA PEG DIRECTED BY PROVIDER.
[2020-07-19 11:50] LABS: Vancomycin, Random 13.3 ug/mL
--- NOTE | 2020-07-19 13:10 | NUR ---
WANTS PT DISCHARGED: PATIENTS ASKS WHEN THE DR WILL BE IN, TOLD HER THE DR USUALLY DOESN NOT COME BACK IN T/O THE DAY. DR HERMOSILLO WAS IN THIS MORNING PRIOR TO HER COMING TO THE HOSPITAL. STATES HE WOULD DO BETTER AT HOME AND WANTS HIS ANTIBIOTICS CHANGED FROM IV TO A FORM SHE CAN GIVE HIM THREW THE TUBE.
--- NOTE | 2020-07-19 13:20 | NUR ---
CALL OUT TO DR HERMOSILLO: ASKED ABOUT BLOOD DRAW WE DISCUSSED THIS MORNING. DR MCCOY PLACE ORDER. UPDATED ON WANTING TO TAKE PT DISCHARGE HOME ON PEG TUBE ANTIBIOTICS TODAY. DR HERMOSILLO STATES PT NEEDS TO BE ON IV ANTIBIOTICS A FEW MORE DAYS AND WILL NOT DISCHARGE PATIENT.
--- NOTE | 2020-07-19 13:30 | NUR ---
EDUCATED : EDUCATED ON PT HAVING TO REMAIN ON ANTIBIOTICS FOR ANOTHER COUPLE OF DAYS AND WOULD NOT BE DISHCARGED TODAY. STATES SHE WANTS A SECOND OPPINION AND SHE DID NOT LIKE DR HERMOSILLO FROM THE PATIENTS PREVIOUS VISIT.
--- NOTE | 2020-07-19 13:31 | NUR ---
TALKED WITH THE LAWN CARE WORKER ABOUT A SECOND OPPINION AND IF IT CAN BE ARAINGED. LAWN CARE WORKER KEN TYSON CALLED HOSPITALIST ENGINEERING MODEL MAKER DR CASTANEDA. WHEN DR CASTANEDA CALLED BACK LAWN CARE WORKER WAS UNAVAILABLE, THIS RN UPDATED DR CASTANEDA ON THE SITUATION OF THE FAMILY REQUESTING A SECOND OPPINION WELL WANTING THE PT TO BE DISCHARGED. DR CASTANEDA STATES HE WILL TALK WITH DR HERMOSILLO TO SEE WHAT HIS OPPINION IS AND IF THERE IS ANOTHER HOSSPITALIST AVAILABLE FOR A SECOND OPPINION, IF NOT HE WILL COME IN.
--- NOTE | 2020-07-19 13:34 | NUR ---
ETHICS CONSULT: TALKED WITH VALERI Ac RN ABOUT FAMILY TAKING PT FROM HOSPITAL AMA. CALLED CARMEN LENTZ, SHE WILL COME TO THE UNIT SOON SHE CAN TO DISCUSS.
--- NOTE | 2020-07-19 14:00 | NUR ---
EDUCATION FOR AND PATIENT: DR BAY FUNES AND STATES HE IS NOT THE DR SHE REMEMBERS NOT LIKEING ON THE PATIENTS PREVIOUS STAY. STATES SHE IS OK WITH PT STAYING ONE MORE NIGHT, BUT WANTS TO TAKE HIM HOME. DR HERMOSILLO UPDATES HER FURTHER ON PT STATUS, KIDNEY FAILURE, UTI, PNA, MRSA, IV ANTIBIOTICS, AND SO ON. STATES SHE DID NOT KNOW THAT HE HAD MRSA OR THAT HE WAS IN KIDNEY FAILURE. SHE CONTINUED TO ASK THE DR QUESTIONS AND DR HERMOSILLO STATE PT WOULD POSSIBLY BE ABLE TO LEAVE ON THURSDAY AFTER THE ASKED FOR A DATE OF WHEN THE PT WOULD BE ABLE TO LEAVE. EDUCATED PT IS FREE TO LEAVE, BUT IT WOULD BE AGAINST MEDICAL ADVISE. DOES STATE SHE WANTS WHAT IS BEST FOR THE PATIENT AND DOES NOT WANT TO TAKE HIM AMA AT THIS TIME. WILL CONTINUE TO MONITOR.
[2020-07-19 14:23] LABS: Hematocrit 23.7 % (37.0-53.0); Hemoglobin 7.7 g/dL (13.5-17.5)
--- NOTE | 2020-07-19 14:45 | NUR ---
CALLED DR STRICKLAND: NOTIFIED DR STRICKLAND OF NA+ OF 150 RECEIVED ORDER TO INCREASE FLUIDS TO 75ML/HR
--- NOTE | 2020-07-19 14:50 | NUR ---
INCREASED D50 TO 75ML/HR
[2020-07-19 17:08] LABS: A/G RATIO 0.5 (0.7-1.7); ALBUMIN 1.9 g/dL (2.9-4.4); ALPHA-1-GLOBULIN 0.3 g/dL (0.0-0.4); ALPHA-2-GLOBULIN 0.7 g/dL (0.4-1.0); BETA GLOBULIN 1.1 g/dL (0.7-1.3); GAMMA GLOBULIN 1.8 g/dL (0.4-1.8); IMMUNOGLOBULIN A, QN, SERUM 677 mg/dL (61-437); IMMUNOGLOBULIN G, QN, SERUM 1799 mg/dL (603-1613); IMMUNOGLOBULIN M, QN, SERUM 36 mg/dL (15-143); M-SPIKE Not Observed g/dL (Not Observed); PROTEIN, TOTAL, SERUM 5.9 g/dL (6.0-8.5)
--- NOTE | 2020-07-19 17:39 | NUR ---
Initial spiritual care note: I met with Mr. Sarkar alone in room. He remembered my visits with him last admission. He is sometimes difficult to understand, but appears lucid. He tells me he feels he is "at a crossroads." He feels his body growing weaker and admits he sometimes thinks "God is calling me home." He is concerned about his and daughter and their despair if he dies. He explains that he doesn't want to and hopes he can have more quality time. He was often teaerful as we spoke. His , Jocelin arrived. She appeared anxious and told me about pt's last admission. She beleives he does better at home and wants him discharged home as soon as possible. She appears to have a limited understanding of his swallow problems, saying that "He was getting better--able to swallow liquids and soft foods with just a little coughing." [place] and Jocelin explained that "they" said his swallowing was improving enough to advance his diet. She blames this hospitalization for his current infection. Jocelin responded well to being heard and emotionally verified. We had an easy rapport. I was present when Dr. Morton arrived for update. Jocelin has agreed to allow "one more day of IV antibiotics" and plans on taking Lio home on Thursday. It is clear to me they love each other very much. Lio trusts her to make decisions on his behalf. He told me this several times. Prayer provided for healing at pt's request. Manager In Home services will remain available.
--- NOTE | 2020-07-19 22:08 | NUR ---
ASSUMPTION OF CARE PT AWAKE IN CHAIR, MAKING FREQUENT REQUESTS FOR WATER, ORAL CARE AND MOIST SPONGES PROVIDED. MONITOR SHOWS SINUS RHYTHM WITH HR 80'S-90'S, BP STABLE. PT ON RA WITH O2 SATURATIONS> 90%. PEG IN PLACE, BOLUS FEEDS STARTED THIS SHIFT, PT APPEARS TO BE TOLERATING WELL. AGARWAL IN PLACE WITH PINK TO CRANBERRY COLORED URINE. MEPILEX TO L HEEL WITH PINK FOAM.
--- NOTE | 2020-07-20 | NUR ---
AGITATION PT WITH INCREASED AGITATION AND RESTLESS IN BED, YELLING OUT FOR WATER. DISCUSSED WITH GEO ZHENG NP, REVEIWED HOME MEDICATIONS AND ORDERED ONE TIME DOSE SEROQUEL AND MELATONIN. PT CURRENTLY SLEEPING.
--- NOTE | 2020-07-20 00:45 | NUR ---
HYPOTENSION TO PTS ROOM R/T DECREASED BP, SBP 80'S, MAPS>60, AFEBRILE AT THIS TIME. PT RESTING COMFORTABLY, AROUSES EASILY TO VERBAL STIMULI, DENIES ANY NEEDS AT THIS TIME. INCREASED FREQUENCY OF BP CYCLES FOR CLOSER MONITORING.
[2020-07-20 03:44] LABS: BASOPHILS ABSOLUTE AUTO 0.04 K/mm3 (0.00-0.23); BASOPHILS PERCENT AUTO 0 % (0-2); EOSINOPHILS ABSOLUTE AUTO 0.41 K/mm3 (0.00-0.68); EOSINOPHILS PERCENT AUTO 4 % (0-6); Hematocrit 22.7 % (37.0-53.0); IMMATURE GRAN ABSOLUTE AUTO 0.15 K/mm3 (0.00-0.10); IMMATURE GRAN PERCENT AUTO 1 % (0-1); LYMPHOCYTES ABSOLUTE AUTO 2.23 K/mm3 (0.84-5.20); LYMPHOCYTES PERCENT AUTO 20 % (21-46); MONOCYTES ABSOLUTE AUTO 1.36 K/mm3 (0.16-1.47); MONOCYTES PERCENT AUTO 12 % (4-13); Mean Corpuscular HGB 27.9 pg (26.0-34.0); Mean Corpuscular HGB Conc 30.8 g/dL (31.5-36.5); NEUTROPHILS ABSOLUTE AUTO 7.07 K/mm3 (1.96-9.15); NEUTROPHILS PERCENT AUTO 63 % (41-73); NRBC ABSOLUTE 0.03 K/mm3 (0.00-0.02); NRBC Auto 0.3 /100 WBC (0.0-0.2); Platelet Count 174 K/mm3 (150-400); RDW Coefficient Variation 16.4 % (11.7-14.2); RDW Standard Deviation 53.3 fL (35.1-46.3); Red Blood Cell Count 2.51 M/mm3 (4.30-5.90); White Blood Cell Count 11.26 K/mm3 (4.00-11.30)
[2020-07-20 03:47] LABS: Mean Corpuscular Volume 90 fL (80-100)
[2020-07-20 04:10] LABS: Albumin, Blood 1.7 g/dL (3.4-5.0); Anion Gap 9 mmol/L (6-16); Blood Urea Nitrogen 102 mg/dL (8-24); Bun/Creatinine Ratio 23.5 (12.0-20.0); CO2, Blood 21 mmol/L (21-32); Calcium, Blood 7.4 mg/dL (8.5-10.1); Chloride, Blood 117 mmol/L (98-108); Creatinine, Blood 4.34 mg/dL (0.60-1.20); Glomerular Filtration Rate 14 (60-); Glucose, Blood 112 mg/dL (70-99); Magnesium, Blood 2.2 mg/dL (1.6-2.4); Phosphorus, Blood 3.6 mg/dL (2.5-4.9); Potassium, Blood 3.2 mmol/L (3.5-5.5); Sodium, Blood 147 mmol/L (136-145)
--- NOTE | 2020-07-20 07:05 | NUR ---
ASSUMED CARE: RECEIVED REPORT FROM NOC RN. PT APPEARS DROUSY, BUT ALERT. VSS AT THIS TIME. WILL CONTINUE TO MONITOR.
--- NOTE | 2020-07-20 07:05 | NUR ---
ASSUMED CARE: RECEIVED REPORT FROM NOC RN. PT APPEARS DROUSY, BUT IS ALERT TO VERBAL STIMULI. PT IS COOPERATIVE AND FALLS ASLEEP ONCE HE IS DONE TALKING. VSS AT THIS TIME. ORAL CARE DONE WHILE IN ROOM.
--- NOTE | 2020-07-20 07:37 | NUR ---
SHIFT SUMMARY PT SLEPT WELL AFTER ADMINISTRATION OF SEROQUEL, REMAINS AROUSABLE TO VERBAL STIMULI AND FOLLOWS DIRECTIONS BUT IS VERY LETHARGIC. BP REMAINS LOW BUT MAPS>65, PT AFEBRILE T/O SHIFT. PT REMAINS NPO, FREQUENT ORAL CARE PROVIDED. TF PER PEG THIS AM, PT TOLERATED WELL. AGARWAL REMAINS IN PLACE, DRAINING CRANBERRY COLORED URINE. REPORT GIVEN TO TOAN BRIAN.
[2020-07-20 08:30] LABS: Vancomycin, Trough 21.1 ug/mL (5.0-10.0)
--- NOTE | 2020-07-20 11:00 | NUR ---
UP TO CHAIR: GAVE PT A BEDBATH AND TRANSFERED PT TO RECLINER. PT HEALS FLOATING CURRENTLY AND ORAL CARE GIVEN PRIOR TO BEDBATH AND THEN AGAIN PRIOR TO RN LEAVING THE ROOM. PT APPEARS TO BE A/O X 3 NO ACUTE DISTRESS NOTED. PT IS COUGHING AND DEEP BREATHING. CONTINUES TO BE ON RA. BLOOD STARTED. WHILE IN THE ROOM. WILL CONTINUE TO MONITOR AND ASSESS FURTHER.
[2020-07-20 12:09] LABS: ANTIGLOMERULAR BM AB 6 units (0-20)
--- NOTE | 2020-07-20 13:00 | NUR ---
DAUGHTER: DAUGHTER INTO SEE PT TODAY. TALKED WITH HER ABOUT PT CONDITION AND PLAN OF CARE. SHE APPEARS TO HAVE A BETTER UNDERSTANDING OF HOW PT PLAN OF CARE WORKS, THAN THE . DAUGHTER STATES SHE WORKS AT A HOSPITAL AND UNDERSTANDS SOME OF THE INS AND OUTS. EDUCATED DAUGHTER ON PT LABS, CURRENT CONDITION AND EXPECTATIONS. WILL CONTINUE TO MONITOR AND ASSESS FURTHER.
[2020-07-20 13:09] LABS: ANA DIRECT Negative (Negative); ANTIMYELOPEROXIDASE (MPO) ABS <9.0 U/mL (0.0-9.0); ANTIPROTEINASE 3 (PR-3) ABS <3.5 U/mL (0.0-3.5); ATYPICAL PANCA <1:20 titer (Neg:<1:20); CYTOPLASMIC (C-ANCA) <1:20 titer (Neg:<1:20); PERINUCLEAR (P-ANCA) <1:20 titer (Neg:<1:20)
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
[2020-07-20 16:07] LABS: Hematocrit 27.5 % (37.0-53.0); Hemoglobin 8.8 g/dL (13.5-17.5)
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
[2020-07-20 16:31] LABS: Albumin, Blood 1.7 g/dL (3.4-5.0); Albumin/Globulin Ratio 0.3 (0.8-1.8); Bilirubin, Total 0.3 mg/dL (0.1-1.0); Bun/Creatinine Ratio 23.6 (12.0-20.0); Calcium, Blood 7.5 mg/dL (8.5-10.1); Creatinine, Blood 3.99 mg/dL (0.60-1.20); Globulin, Blood 5.6 g/dL (2.2-4.0); Potassium, Blood 3.4 mmol/L (3.5-5.5); Total Protein, Blood 7.3 g/dL (6.4-8.2)
--- NOTE | 2020-07-20 16:40 | NUR ---
UPDATE: UPDATED ON LAB LEVELS, PLAN OF CARE AND PT INCREASED ANXIETY AND AGITATION. SOUNDS REASSURED AND HAPPY TO BE UPDATED. STATES HIS AGITATION AND ANXIETY IS NORMAL FOR HIM. WILL CONTINUE TO MONITOR. STATES SHE WILL BE IN LATER TODAY.
--- NOTE | 2020-07-20 18:13 | NUR ---
WOUND DRESSING CHANGE: L HEAL DRESSING REMOVED, CLEANED, DRIED, AND REDRESSED WOUND. HEAL PROTECTOR PUT IN PLACE AND PT RECLINED FURTHER FOR COMFORT.
--- NOTE | 2020-07-20 19:00 | NUR ---
ASSUMED CARE NOTE: ASSUMED CARE OF PT AT 1900, RECEVIED REPORT FROM EJ BRIAN. PT IS ALERT AND ORINETED TO SELF, PLACE AND IS ABLE TO FOLLOW DIRECTIONS. PT IS SLOW TO RESPOND, HOWEVER, IS ABLE TO COMMUNICATE NEEDS. PT WAS ON 10L OF O2 VIA NC, WITH SPO2 AT 97%, PT THEN TITRATED DOWN TO 5L OF VIA HFNC, WITH SPO2 AT 94% NASAL TRUMPET TO RIGHT NARE IN PLACE. RR BETWEEN 20-25. PT IS COARSE IN BILAT UPPER LOBES, DIM IN THE BASES. LASIX WILL BE GIVEN ORDERED TO IMPROVE RESP STATUS. RT AT BEDSIDE, PT RECEVING BREATHING TREATMENT. BT HEARD IN ALL QUADRANTS, PEG TUBE SITE IS WNL. PT IS IN SIT, WITH HR IN THE 120'S. WILL CONTINUE TO MONITOR PT T/O SHIFT.
--- NOTE | 2020-07-20 23:26 | NUR ---
UPDATE: PT YELLING OUT " NURSE, NURSE, COME TAKE THIS THING OUT OF MY NOSE, ITS PLUGGED UP. I NEED MY , SHE WILL COME IN AND TAKE ME HOME IF YOU DON'T TAKE IT OUT" PT WAS REMINDED THAT THE NASAL TRUMPET WAS PLACE TO HELP DEEP SUCTION. HE STATED " I CANNOT SLEEP WITH IT IN. I WILL TAKE IT OUT MYSELF" PT WAS CALLED, RT WILL SUCTION THEN REMOVED THE NASAL TRUMPET TO PREVENT PT FROM PULLING IT OUT. PT IS ON 2L OF 02 VIA NC, SPO2 AT 97%
[2020-07-21 05:48] LABS: Hematocrit 32.3 % (37.0-53.0); Hemoglobin 10.1 g/dL (13.5-17.5)
[2020-07-21 06:09] LABS: Albumin, Blood 1.7 g/dL (3.4-5.0); Anion Gap 9 mmol/L (6-16); Blood Urea Nitrogen 90 mg/dL (8-24); Bun/Creatinine Ratio 23.3 (12.0-20.0); CO2, Blood 22 mmol/L (21-32); Calcium, Blood 7.7 mg/dL (8.5-10.1); Chloride, Blood 116 mmol/L (98-108); Creatinine, Blood 3.86 mg/dL (0.60-1.20); Glomerular Filtration Rate 16 (60-); Glucose, Blood 97 mg/dL (70-99); Magnesium, Blood 2.1 mg/dL (1.6-2.4); Phosphorus, Blood 3.3 mg/dL (2.5-4.9); Potassium, Blood 3.6 mmol/L (3.5-5.5); Sodium, Blood 147 mmol/L (136-145); Vancomycin, Random 16.9 ug/mL
--- NOTE | 2020-07-21 06:15 | NUR ---
SHIFT SUMMARY: PT HAS NOT SLEPT THIS SHIFT. PT HAS BEEN ASKING FOR ORAL CARE Q1HRS. PT IS ANXIOUS AND BELIEVES HIS FINGER IS ON FIRE. PT IS ABLE TO BE REASSURED THAT HE IS IN A SAFE PLACE, AND THAT WE ARE TAKING CARE OF HIM. PT ALSO CONTINUED TO ASK FOR HIS ALL NIGHT. PT IS CONFUSED AT TIMES, AND ASK EACH STAFF MEMBER THAT COMES INTO HIS ROOM FOR WATER. PT WAS REMINDED THAT HE IS NPO, THERFORE STS " I AM GOING TO LEAVE TODAY, AND IT IS MY HUMAN RIGHT" PT WAS THEN REMINDED THAT HE IS NPO AND THAT HE IS AT GREAT RISK OF ASPIRATION. PT HAS BEEN IN NSR-SIT WITH HR BETWEEN 80-110. PT HAS BEEN ON 2L OF 02 VIA NC, WITH SPO2 AT 94% PT HAS REQUIRED SUCTIONING FREQUENTLY DURING SHIFT. PT IS PRODUCING THICK YELLOW SPUTUM. AGARWAL IS PATENT DRAINING CRANBERRY COLORED URINE. UNABLE TO GIVE 0600, TUBE FEEDING, DUE TO DIET OFFICE NOT HAVING CORRECT FEED. WILL PASS ON TO DAY SHIFT.
--- NOTE | 2020-07-21 09:53 | NUR ---
CARE ASSUMED CARE AND REPORT ASSUMED FROM REMINGTON BRIAN. PT SLEEPING BUT DOES AWAKEN TO VERBAL STIMULI VERY EASILY. IS CONFUSED AT TIMES AND DOES HAVE SLURRED SPEECH, BUT IS EASY TO REORIENT. STRICT NPO. VSS. NSR, HR 90S. BP WNL. AFEBRILE. PT LIFTED INTO RECLINER CHAIR WITH CEILING LIFT AND IS WATCHING TV AT THIS TIME. WILL ADMINISTER TUBE FEEDS. ANBX INFUSING. NO MAINTENANCE IV FLUID AT THIS TIME. PT DOES HAVE STRONG COUGH AND IS ABLE TO CLEAR HIS SECRETIONS. ENCOURAGING USE OF FLUTTER VALVE. PT DOES HAVE LEFT SIDED WEAKNESS AND CANNOT MOVE EXTREMITIES ON LEFT SIDE. IS ABLE TO MOVE R ARM WITHOUT ANY ASSISTANCE. WILL UPDATE ON TELEPHONE. WILL CONTINUE TO MONITOR.
--- NOTE | 2020-07-21 12:26 | NUR ---
REASSESSMENT PT REMAINS SITTING UPRIGHT IN RECLINER CHAIR. TURNED PT COMPLETELY AND CHUX LINEN CHANGED. VSS. A/O X 3, ANSWERING QUESTIONS APPROPRIATELY. AGARWAL CATH REMAINS SECURED AND PATENT. TOLERATED GRAVITY TF. PT REMAINS NPO EVEN THOUGH CONTINUES TO ASK FOR WATER TO DRINK. WILL CONTINUE TO MONITOR.
--- NOTE | 2020-07-21 18:31 | NUR ---
SHIFT SUMMARY PT UP IN RECLINER CHAIR FOR MOST OF SHIFT. HAS TOLERATED MOIST SWABS BUT HAS REMAINED NPO. AT BEDSIDE OFF/ON DURING SHIFT. VSS DURING SHIFT. AFEBRILE. URINE OUTPUT IS BLOOD TINGED AND TOTALED 1300 ML. SODIUM LEVEL DECREASED TO 145; MD STRICKLAND AWARE AT 1810. CONTINUE CURRENT REGIMEN; NO CHANGES. TOLERATED GRAVITY FEEDS WITH FREE WATER FLUSHES. WILL GIVE BEDSIDE, HANDOFF REPORT TO TIKI BRIAN.
--- NOTE | 2020-07-21 19:00 | NUR ---
ASSUMED CARE NOTE: ASSUMED CARE OF PT AT 1900, RECEVIED REPORT FROM JAXON BRIAN. PT IS ALERT AND ORIENTED TO SELF, PLACE AND IS ABLE TO FOLLOW DIRECTIONS. PT IS CONFUSED AND ANXIOUS, CALLING OUT FOR PEOPLE WHO ARE NOT HERE. PT YELLS OUT FOR HELP AND WATER. PT IS BEING GIVEN FREQUENT ORAL CARE. PT WAS REMINDED THAT HE IS STRICTLY NPO. ACCORDING TO DAY SHIFT PT HAS NOT SLEPT. PT IS ON RA WITH SPO2 ABOVE 90% PT IN SIT WITH HR IN THE 110'S. PEG TUBE SITE FREE FROM SIGNS OF INFECTION, PEG TUBE IS CLAMPED. AGARWAL PATNET DRAINING CRANBERRY URINE.
--- NOTE | 2020-07-21 20:45 | NUR ---
CALLED REGARDING PT'S ANXIETY AND LACK OF SLEEP. ORDERS FOR 5MG OF MELATONIN GIVEN.
--- NOTE | 2020-07-21 21:27 | NUR ---
UPDATE: PT PULLED OFF HEART MONITOR AND SPO2 MONITOR. STATING HER WANTS TO GO HOME. HE IS STATING " I WANT TO GO HOME. I NEED WATER, I NEED TO DRINK" PT IS CONFUSED AND UNABLE TO UNDERSTAND HE IS NPO AND AT GREAT RISK FOR ASPIRATION.
--- NOTE | 2020-07-21 21:41 | NUR ---
CALLED REGARDING PT'S ANXIETY AND AGITATION. ORDER FOR ATIVAN GIVEN.
--- NOTE | 2020-07-21 21:58 | NUR ---
UPDATE: PT STS " I WANT TO , BUT MY FAMILY WON'T LET ME, WILL YOU PLEASE HELP ME" " I NEED TO DRINK WATER BEFORE I LEAVE THIS WORLD. WILL YOU PLEASE GIVE ME PILLS AND HELP ME IN [place]. I THINK IT IS TIME, I AM SEEING MY LAST DAYS" THIS NURSE SAT WITH PATIENT AND PROVIDED THERAPUTIC COMFORT. PALLATIVE CONSULT WAS PLACED.
--- NOTE | 2020-07-21 23:40 | NUR ---
UPDATE: PT IS YELLING OUT " PLEASE GIVE ME WATER SO I CAN DROWN, MY WILL NEVER KNOW" CALLED SHORTLY AFTER, GAVE UPDATE ON PT STATUS. STATES " PLEASE DO NOT BELIEVE ANYTHING HE SAYS, HE IS DEPRESSED AND WANTS TO COME HOME THAT IS WHY HE IS A FULL-CODE. HE JUST NEEDS TO SLEEP"
[2020-07-22 03:51] LABS: Hematocrit 28.5 % (37.0-53.0)
[2020-07-22 04:11] LABS: Albumin, Blood 1.7 g/dL (3.4-5.0); Anion Gap 7 mmol/L (6-16); Blood Urea Nitrogen 85 mg/dL (8-24); Bun/Creatinine Ratio 22.3 (12.0-20.0); CO2, Blood 24 mmol/L (21-32); Calcium, Blood 7.6 mg/dL (8.5-10.1); Chloride, Blood 118 mmol/L (98-108); Creatinine, Blood 3.81 mg/dL (0.60-1.20); Glomerular Filtration Rate 17 (60-); Glucose, Blood 116 mg/dL (70-99); Phosphorus, Blood 3.4 mg/dL (2.5-4.9); Potassium, Blood 3.2 mmol/L (3.5-5.5); Sodium, Blood 149 mmol/L (136-145); Vancomycin, Random 26.5 ug/mL
--- NOTE | 2020-07-22 06:27 | NUR ---
SHIFT SUMMARY: PT CONTINUES TO BE CONFUSED, KEEPS YELLING OUT FOR WATER. HAS NOT BEEN ABLE TO SLEEP THIS SHIFT. PT IS ON 2L OF 02 VIA NC, DUE TO SPO2 DROPPING TO 88% PT NO AT 93% PT SUCTIONED FREQUENTLY, HE IS PRODUCING THICK ABRAHAM SPUTUM. PT HAS BEEN IN SINUS RYTHYM -SINUS TACH WITH HR BETWEEN 90-110. PT RECEVIED TUBE FEEDING VIA PEG TUBE ORDERED WELL 60ML FLUSH BEFORE AND AFTER. PT HAS NOT REQUIRED ANY INSULIN COVERAGE. AGARWAL IS PATENT AND DRAINING CRANBERRY COLORED URINE. VITALS HAVE BEEN STABLE. WILL CONTINUE TO MONITOR PT UNTIL REPORT IS GIVEN TO ONCOMING SHIFT.
--- NOTE | 2020-07-22 09:46 | NUR ---
PT CAME IN TO VISIT THIS AM AND WISHING TO TAKE PT HOME "IF MEDICALLY STABLE". PT SEEMS TO RESPOND TO SPOUSE BETTER THAN TO STAFF, HOWEVER THERE IS SOME CONFUSION NOTED AND STATES THAT HE HAD NO SLEEP LAST NOC. L SIDE IS FLACCID TO COMMANDS, R SIDE SEEMS STROMG. VS NOTED. L PEG SITE IS INTACT AND DSG DRY. SMALL AMT/SMEARS OF OLD TARRY STOOL.
--- NOTE | 2020-07-22 11:21 | NUR ---
INITIAL PAL CARE VISIT - PAL CARE REFERRAL RECEIVED FOR S/S MANAGMENT DUE TO NEURO, RENAL, RESP IMPAIRMENTS, PT'S ANXIETY AND STATEMENTS TO STAFF RE: "I DON'T WANT TO LIVE ANYMORE". EMR REVIEWED AND CASE CONFERENCED WITH PT'S RN PRIOR TO MY VISIT. IS AT BEDSIDE. PT IS A READMIT TO [facility] BUT THIS IS FIRST MEETING OF AND PT TO ME. 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 HIS SEEMS ABLE TO DISCERN AND COMMUNICATE WITH HIM WELL. CHIEF C/O OF S/S AT THIS TIME IS LACK OF SLEEP AND AGITATION RELATED TO THAT. I REVIEWED PT'S HOME MEDICATION LIST AND CONFIRMED WITH HIS THAT HE HAD BEEN PRESCRIBED SEROQUIL FOR AGITATION AND SLEEP AT HOME. STATES THIS IS HELPFUL AND HAD RECENTLY BEEN INCREASED FROM 50 MG QHS TO 100 MG. SHE ALSO MENTIONED THAT HE HAD FLEXERIL AND VISTARIL ORDERED PREVIOUSLY AT HOME. PT'S INQUIRING ABOUT D/C TIMEFRAME AND I TELL HER I AM UNABLE TO ANSWER THOSE QUESTIONS. MY UNDERSTANDING FROM RN IS THAT PT HAS AT LEAST ONE MORE DAY OF ANTIBIOTIC RX BEFORE D/C CAN BE CONSIDERED. ANXIOUS TO GET ROSEMARIE HOME. I TOLD HER I WOULD LEAVE A MESSAGE WITH [facility] THAT SHE ANTICIPATED RELEASE FROM HOSPITAL EARLY THIS WEEK IF ALL GOES WELL. PT IS NOT DEMONSTRATING NONVERBAL INDICATORS OF PAIN BUT APPEARS SL RESTLESS/ANXIOUS IN ATTEMPTS TO COMMUNICATE. STATES HE DOES MUCH BETTER AT HOME DUE TO PREVIOUS UNPLEASANT EXPERIENCES IN THE HOSPITAL. PT AND WERE HERE DURING INITIAL COVID RESTRICTIONS WHEN NO VISITORS WERE ALLOWED AND THIS BECAME A HUGE HARDSHIP FOR AND PT, DUE TO IMPAIRED ABILITY TO COMMUNICATE CLEARLY. I USED THIS FIRST VISIT A RAPPORT BUILDING SESSION WITH , TEDDY. SHE WAS RECEPTIVE TO OUR VISIT TODAY AND APPRECIATIVE OF A LISTENING EAR. PT APPEARS CALM AND IN NO DISTRESS WITH HIS AT THE BEDSIDE. REPORT CALLED TO DR HERMOSILLO ON MY VISIT AND VO RECEIVED AND ENTERED FOR SEROQUEL 50 MG PT QHS. I ALSO REPORTED RN'S FINDINGS OF KIM POSTERIOR CRACKLES AT THE BASES NOTED DURING HIS ASSESSMENT. PLAN: CONTACT [facility] WITH UPDATE AND TO VISIT AGAIN IF PT REMAINS HOSPITALIZED ON THURSDAY.
[2020-07-22 13:57] LABS: PCO2 Arterial 39.9 mmHg (35-45); PO2 Arterial 59.4 mmHg (80-100); pH Blood Arterial 7.35 (7.35-7.45)
--- NOTE | 2020-07-22 15:25 | NUR ---
1200 ASSESSMENT REVEALS PT WITH MILD/MOD INC. WOB., VS REMAIN NOTED, AND PT SL CONFUSED. DURING THE NEXT HOUR PT WOB INCREASED AND PT CONT WITH BB CRACKLES WITH O2 DEMANDS OF 2L TO 4L INITALLLY. PT CALLING OUT AND CONFUSION PERSISTS. CALL AND ORDERS FROM DR HERMOSILLO. INTERVENTION OF LOPRESSOR AND PRN FENTANYL AIDED PT STATUS. MINIMAL LASIX RESPONSE AND PT WEIGHT TAKEN PRIOR TO LASIX AT 95.8 KG. NOON PEG TUBE INTAKE WAS HELD IN THE EVENT THAT THIS WAS PULMONARY FLUID OVERLOAD. CXR, ABG AND MEDS WERE GIVEN. PT CHANGE IN VS, ANXIETY, AND IMPROVED RESP STATUS NOTED. PT REMAINS SL AUDIBLY WHEEZE, COARSE WITH CRACKLES AND O2 DEMANDS UP AT 7L FOR NOW POST ABG'S.
--- NOTE | 2020-07-22 15:37 | NUR ---
PTS MOVE TO PCU ROOM HELD FOR NOW DUE TO LAST NOTE AND STATUS. PT IS RESTING WITH HR, BP, LOWER RR WITH SIGNIFICANTLY IMPROVED WOB. PT REMAINS ON 7L HFNC. MINIMAL U.O. NOTED POST LASIX WILL FOLLOW.
--- NOTE | 2020-07-22 15:50 | NUR ---
COARSE UPPPER AIRWAY BREATH SOUNDS. VS NOTED. MINIMAL UO NOTED.
--- NOTE | 2020-07-22 16:24 | NUR ---
NOON AND 1500 PEG TUBE FEEDINGS HELD. PT IS CURRENTLY RESTING AND IMPROVED NOTED. IN AND UP DATED WITH PT STATUS.
--- NOTE | 2020-07-22 16:37 | NUR ---
PT AWAKENED IN ROOM AND CONT WITH UPPER AIRWAY SECREATIONS. DEEP YANKUER CLEARED AIRWAY OF THIN YELLOW SECREATIONS AND NO FURTHER AUDIBLE SOUNDS CURRENTLY. PT DOES CONT. TO COUGH AND IS LOOSE HOWEVER. IS IN ROOM AND BROUGHT UP TO DATE ON PT AFTERNOON STATUS. 1200 AND 1500 T.F. WERE HELD DUE TO UNKNOWN LUNG STATUS. CXR RESULTS SHOWED SOME MILD EDEMA. O2 REMAINS AT 2L.
--- NOTE | 2020-07-22 17:15 | NUR ---
REPORT GIVEN TO ANNE MARIE BRIAN AND PT WILL BE TRANSFERED TO [facility]-. PT IS SLEEPING. LAB DRAWN AND REPORTED TO BE CALLED TO DR STRICKLAND.
[2020-07-22 17:29] LABS: Potassium, Blood 4.2 mmol/L (3.5-5.5); Troponin I 0.24 ng/mL (0.000-0.040); Uric Acid, Blood 6.2 mg/dL (3.5-7.2)
--- NOTE | 2020-07-22 17:43 | NUR ---
[facility] TO TRANSPORT PT TO PCU 11 VIA BED.
--- NOTE | 2020-07-22 18:41 | NUR ---
PATIENT TRANSFERED FROM ICU, NO SIGNS OF ACUTE DISTRESS. PATIENT COMPLAINED OF PAIN, ENDORSED RELIEF WITH DOSE OF FENTANYL. PLAN IS TO CONTINUE TUBE FEEDS, MONITOR FOR UPPER RESP CONGESTION, IMPROVEMENT WITH SUCTION. WCTM.
--- NOTE | 2020-07-22 20:48 | NUR ---
PT RESTING COMFORTABLY IN BED; ALERT AND ORIENTED X 1, ABLE FOLLOW VERY SIMPLE VERBAL COMMANDS; VERY DROWSY; VITAL SIGNS STABLE; PT TOLERATED PEG TUBE FEEDING THIS SHIFT; NO NAUSEA OR VOMITING.
[2020-07-23 04:44] LABS: Hematocrit 27.4 % (37.0-53.0); Hemoglobin 8.3 g/dL (13.5-17.5)
[2020-07-23 05:11] LABS: Albumin, Blood 1.7 g/dL (3.4-5.0); Anion Gap 4 mmol/L (6-16); Blood Urea Nitrogen 83 mg/dL (8-24); Bun/Creatinine Ratio 21.4 (12.0-20.0); CO2, Blood 26 mmol/L (21-32); Chloride, Blood 121 mmol/L (98-108); Creatinine, Blood 3.88 mg/dL (0.60-1.20); Glomerular Filtration Rate 16 (60-); Glucose, Blood 95 mg/dL (70-99); Magnesium, Blood 2.3 mg/dL (1.6-2.4); Phosphorus, Blood 4.9 mg/dL (2.5-4.9); Potassium, Blood 3.8 mmol/L (3.5-5.5); Sodium, Blood 151 mmol/L (136-145); Vancomycin, Random 20.2 ug/mL
--- NOTE | 2020-07-23 05:51 | NUR ---
SHIFT SUMMARY: 69 Y/O MALE RESTED COMFORTABLY IN BED; ALERT AND ORIENTED X 2; ABLE TO FOLLOW VERY SIMPLE VERBAL COMMANDS; PTS LEFT SIDE 100% FLACCID; PT REPOSITIONED Q2H VIA STAFF X 2 ASSIST; DENIES PAIN; PT TOLERATED BOLUS FEEDING LAST NOC AND THIS AM WITH NO RESIDUALS NOTED VIA PEG TUBE ; TELEMETRY REFLECTED NSR; AGARWAL DRAINING LIGHT PINK FLUID; HG 8.3 THIS AM; BED ALARM APPLIED; BED LOW POSITION WITH CALL LIGHT AT SIDE.
--- NOTE | 2020-07-23 18:27 | NUR ---
SHIFT SUMMARY NO ACUTE CHANGES THIS SHIFT PATIENT HAS BEEN ALTER AND COOPERATIVE WITH CARE. TUBE FEEDS ADMINISTERED PER ORDERS, PATIENT TOLERATED WELL. TURNED AND REPOSITIONED Q2HR. ANTICIPATIENT PATIENT TO DC HOME TOMORROW. HE IS VERY ANXIOUS TO GO HOME AND HAS BEEN CALLING OUT TONIGHT WANTING TO GO HOME. BED LOW AND LOCKED, CALL LIGHT WITHIN REACH, BED ALARM SET. WILL CONT TO MONITOR AND REPORT OFF TO NON DESTRUCTIVE EVALUATION TECHNICIAN.
--- NOTE | 2020-07-23 20:18 | NUR ---
ASSUMPTION OF CARE: REPORT RECIEVED FROM MANNIE RN, PATIENT DIAPHORETIC WITH INCREASING HR, BP AND RESPERATORY RATE. PATIENT LUNGS VERY COARSE UPON AUSCULTATION AND RETRACTIONS NOTED. MD NOTIFIED, ORDERS REECIEVED, MEDICATIONS ADMINISTERED PER MD ORDERS, CHEST XRAY COMPLETED AND IV FLUIDS STOPPED. MONITORING CLOSELY.
[2020-07-23 21:07] LABS: Albumin, Blood 1.8 g/dL (3.4-5.0); Anion Gap 7 mmol/L (6-16); Blood Urea Nitrogen 91 mg/dL (8-24); Bun/Creatinine Ratio 25.9 (12.0-20.0); CO2, Blood 23 mmol/L (21-32); Calcium, Blood 8.2 mg/dL (8.5-10.1); Chloride, Blood 118 mmol/L (98-108); Creatinine, Blood 3.51 mg/dL (0.60-1.20); Glomerular Filtration Rate 18 (60-); Glucose, Blood 168 mg/dL (70-99); Phosphorus, Blood 4.3 mg/dL (2.5-4.9); Sodium, Blood 148 mmol/L (136-145)
[2020-07-24 05:22] LABS: Hematocrit 29.1 % (37.0-53.0); Hemoglobin 8.7 g/dL (13.5-17.5)
[2020-07-24 05:52] LABS: Albumin, Blood 1.7 g/dL (3.4-5.0); Anion Gap 8 mmol/L (6-16); Blood Urea Nitrogen 84 mg/dL (8-24); Bun/Creatinine Ratio 23.8 (12.0-20.0); CO2, Blood 24 mmol/L (21-32); Calcium, Blood 8.1 mg/dL (8.5-10.1); Chloride, Blood 120 mmol/L (98-108); Creatinine, Blood 3.53 mg/dL (0.60-1.20); Glomerular Filtration Rate 18 (60-); Glucose, Blood 85 mg/dL (70-99); Magnesium, Blood 2.3 mg/dL (1.6-2.4); Phosphorus, Blood 4.2 mg/dL (2.5-4.9); Potassium, Blood 3.7 mmol/L (3.5-5.5); Sodium, Blood 152 mmol/L (136-145); Vancomycin, Random 17.3 ug/mL
--- NOTE | 2020-07-24 05:56 | NUR ---
SHIFT SUMMARY: PATIENT VSS SINCE APPROX 2300, NO OTHER ACUTE ISSUES NOTED. CALL LIGHT WITHIN REACH, BED LOW AND LOCKED.
[2020-07-24] MEDS ORDERED: LORA2L PO (10:32)
[2020-07-24] MEDS ORDERED: MORP20L SL (10:35)
[2020-07-24 15:08] LABS: M-SPIKE, % Not Observed % (Not Observed); PROTEIN,TOTAL,URINE 123.9 mg/dL (Not Estab.)
--- NOTE | 2020-07-24 17:22 | NUR ---
DISCHARGE SUMMARY PT ALERT; ORIENTED TO FAMILY AND SURROUNDING. ANXIOUS AND REPEATING WORD THAT STAFF AND SPOUSE WOULD SAY. THIS AM PT RESP DISTRESS, PLACED ON 5L O2 VIA NC, SPO2 90-92%; TITRATED PT TO 2L O2 VIA NC 90-91%; HOME O2 EVAL COMPELTED; PLANS FOR DISCHARGE WITH 2L O2 VIA NC. PT RESTLESS AND MOANING, MEDICATED PER EMAR. 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 PT HAS PEG TUBE, 0900 AND 1200 FEEDING COMPELTED; PT SPOUSE TO DO 1500 AT HOME, PLANS FOR PT TO DISCHARGE HOME AT 1500. VSS. NO OTHER ACUTE CHANGES NOTED DURING SHIFT. PT'S SPOUSE EDUCATED ON DISCHARGE SUMMARY, FOLLOW UP APPOINTMENT AND MEDICATIONS. DR TAPIA PROVIDED SPOUSE WITH WRITTEN PRESCRIPTION [facility]. PT LEFT ROOM [facility] WITH 2L O2 VIA NC VIA [facility] AT 1523.
[2020-07-25] MEDS ORDERED: Ativan1 MG PO (17:35)
[2020-07-25] MEDS ORDERED: MORP20L PO (17:35)
== END 2020-07-24 15:35 | disposition home health service (06) | DRG 871 ==
LOC: ER 20:40 → ICUE 22:57 → ICUW 22:57 → ICUE 07-17 00:20 → PCU 07-22 18:03
PROVIDERS: Emergency Medicine; Hospitalist; Internal Medicine; Internal Medicine Gastroenterology; Internal Medicine Nephrology; Nurse Practitioner Acute Care; ADMIT Family Medicine
PROC: 30233N1 Transfusion of Nonautologous Red Blood Cells into Peripheral Vein, Percutaneous Approach (ICD-10-PCS; 2020-07-16)
PROC: 0W3P8ZZ Control Bleeding in Gastrointestinal Tract, Via Natural or Artificial Opening Endoscopic (ICD-10-PCS; principal; 2020-07-18 12:00)
DX: A41.02 Sepsis due to Methicillin resistant Staphylococcus aureus (principal); G92 Toxic encephalopathy; K31.811 Angiodysplasia of stomach and duodenum with bleeding; J96.01 Acute respiratory failure with hypoxia; J15.212 Pneumonia due to Methicillin resistant Staphylococcus aureus; I21.A1 Myocardial infarction type 2; N17.0 Acute kidney failure with tubular necrosis; N25.81 Secondary hyperparathyroidism of renal origin; E87.2 Acidosis; D62 Acute posthemorrhagic anemia; E87.0 Hyperosmolality and hypernatremia; N39.0 Urinary tract infection, site not specified; N18.5 Chronic kidney disease, stage 5; Z79.82 Long term (current) use of aspirin; R65.20 Severe sepsis without septic shock; F43.10 Post-traumatic stress disorder, unspecified; I10 Essential (primary) hypertension; E11.9 Type 2 diabetes mellitus without complications; J44.9 Chronic obstructive pulmonary disease, unspecified; G47.33 Obstructive sleep apnea (adult) (pediatric); G80.8 Other cerebral palsy; I25.10 Atherosclerotic heart disease of native coronary artery without angina pectoris; E87.5 Hyperkalemia; E88.09 Other disorders of plasma-protein metabolism, not elsewhere classified; Z87.891 Personal history of nicotine dependence; E03.9 Hypothyroidism, unspecified; I69.391 Dysphagia following cerebral infarction; R13.12 Dysphagia, oropharyngeal phase; E86.1 Hypovolemia; E87.8 Other disorders of electrolyte and fluid balance, not elsewhere classified; G40.909 Epilepsy, unspecified, not intractable, without status epilepticus; D63.8 Anemia in other chronic diseases classified elsewhere; Z93.1 Gastrostomy status
CPT/HCPCS: 0202U; 31720; 36415; 36430; 36600; 51702; 70450; 71045; 74176; 80053; 80069; 80164; 80202; 81001; 81050; 82248; 82272; 82550; 82607; 82728; 82746; 82747; 82784; 82803; 82947; 83010; 83516; 83520; 83540; 83550; 83605; 83735; 83880; 84100; 84132; 84145; 84156; 84165; 84166; 84295; 84484; 84550; 85014; 85018; 85025; 85384; 86038; 86256; 86334; 86335; 86850; 86880; 86900; 86901; 86923; 87040; 87077; 87081; 87086; 87147; 87186; 92526; 92610; 93005; 93010; 94640; 94760; 94761; 94762; 96361; 96365; 96375; 99285-25; A9270; A9270-GY; C1751; C9113; J0692; J0696; J0881; J1815; J1940; J2060; J2250; J2370; J2704; J3010; J3370; J3480; J7030; J7042; J7050; J7070; J7120; P9016; U0002

== ENCOUNTER 2020-07-25 14:43 | Emergency (ER) | payer OTHER, MEDICARE ==
[~2020-07-25] VITALS: Ht 180.3 cm; Wt 99.8 kg
[~2020-07-25 14:43] MED LIST changes: +ASCO500 PO; +LORA2L PO; +MORP20L SL
[2020-07-25 15:27] LABS: BASOPHILS ABSOLUTE AUTO 0.04 K/mm3 (0.00-0.23); BASOPHILS PERCENT AUTO 0 % (0-2); EOSINOPHILS ABSOLUTE AUTO 0.62 K/mm3 (0.00-0.68); EOSINOPHILS PERCENT AUTO 5 % (0-6); Hematocrit 26.8 % (37.0-53.0); Hemoglobin 8.1 g/dL (13.5-17.5); IMMATURE GRAN ABSOLUTE AUTO 0.04 K/mm3 (0.00-0.10); IMMATURE GRAN PERCENT AUTO 0 % (0-1); LYMPHOCYTES ABSOLUTE AUTO 1.28 K/mm3 (0.84-5.20); LYMPHOCYTES PERCENT AUTO 11 % (21-46); MONOCYTES ABSOLUTE AUTO 0.79 K/mm3 (0.16-1.47); MONOCYTES PERCENT AUTO 7 % (4-13); Mean Corpuscular HGB 28.7 pg (26.0-34.0); Mean Corpuscular HGB Conc 30.2 g/dL (31.5-36.5); Mean Corpuscular Volume 95 fL (80-100); Mean Platelet Volume 11.6 fL (9.1-12.4); NEUTROPHILS ABSOLUTE AUTO 8.91 K/mm3 (1.96-9.15); NEUTROPHILS PERCENT AUTO 76 % (41-73); Platelet Count 165 K/mm3 (150-400); RDW Coefficient Variation 17.6 % (11.7-14.2); RDW Standard Deviation 60.6 fL (35.1-46.3); Red Blood Cell Count 2.82 M/mm3 (4.30-5.90); White Blood Cell Count 11.68 K/mm3 (4.00-11.30)
[2020-07-25 15:44] LABS: Albumin, Blood 1.8 g/dL (3.4-5.0); Albumin/Globulin Ratio 0.3 (0.8-1.8); Bilirubin, Total 0.3 mg/dL (0.1-1.0); Bun/Creatinine Ratio 25.5 (12.0-20.0); Calcium, Blood 8.4 mg/dL (8.5-10.1); Creatinine, Blood 3.65 mg/dL (0.60-1.20); Globulin, Blood 5.6 g/dL (2.2-4.0); Total Protein, Blood 7.4 g/dL (6.4-8.2); Troponin I 0.111 ng/mL (0.000-0.040)
[2020-07-25 15:50] LABS: PCO2 Arterial 34.6 mmHg (35-45); PO2 Arterial 64.7 mmHg (80-100); pH Blood Arterial 7.47 (7.35-7.45)
--- NOTE | 2020-07-25 17:30 | NUR ---
Spoke with ED Community Outreach Advocate Ginger and discussed case. Ginger reports Pt spouse may benefit from discussion regarding goals of care. Spoke with Dr Niño and discussed case. Dr Niño also reports goals of care discussion would be beneficial. Pt resting on gurney upon arrival. Spouse Jocelin arrives and this RN engaged in therapetuic discussion regarding quality of life and comfort. Educated on disease process and frequent hospital stays. Offered therapeutic listening and answered questions. Jocelin johnrafal states "I want to try to get him better one more time". Jocelin reports no other concerns at this time. Relayed spouse wishes to Dr Niño. Spoke with [facility] and discussed case. Nithya visits with spouse and spouse has decided home with hospice. Palliative Care will remain available.
[2020-07-25] MEDS ORDERED: Ativan1 MG PO (17:35)
[2020-07-25] MEDS ORDERED: MORP20L PO (17:35)
--- NOTE | 2020-07-25 17:54 | NUR ---
Spiritual care note: I met with [facility] and dtr. , Jocelin, has agreed to hospice services and wants pt home [facility]. ED staff informed.
== END 2020-07-25 18:15 | disposition home or self-care (01) ==
LOC: ER 14:43
PROVIDERS: Emergency Medicine
DX: R06.03 Acute respiratory distress (principal); I10 Essential (primary) hypertension; I69.391 Dysphagia following cerebral infarction; E11.9 Type 2 diabetes mellitus without complications; F43.10 Post-traumatic stress disorder, unspecified; J44.9 Chronic obstructive pulmonary disease, unspecified; I69.365 Other paralytic syndrome following cerebral infarction, bilateral; G82.50 Quadriplegia, unspecified; Z79.899 Other long term (current) drug therapy; Z88.8 Allergy status to other drugs, medicaments and biological substances
CPT/HCPCS: 36415; 36600; 71045; 80053; 82803; 83605; 83880; 84484; 85025; 87040; 93005; 93010; 94640; 99285-25